=== PATIENT | male | born 1960 | race Caucasian/White ===

== ENCOUNTER 2017-04-04 08:33 | Emergency (ER) | END 2017-04-04 16:25 | disposition home or self-care (01) ==

== ENCOUNTER 2017-04-04 18:56 | Emergency (ER) | END 2017-04-04 21:00 | disposition left against medical advice (07) ==

== ENCOUNTER 2017-09-05 04:20 | Emergency (ER) | END 2017-09-05 05:09 | disposition left against medical advice (07) ==

== ENCOUNTER 2018-04-30 06:02 | Inpatient (IN) | payer OTHER ==
[2018-04-30] VITALS (36 sets, daily range): BP systolic 87–134; BP diastolic 28–110; PULSE 78–91; RESP 0–27; Ht 165.1 cm; Wt 71.5 kg
[~2018-04-30] VITALS: Ht 165.1 cm; Wt 71.5 kg
[~2018-04-30 06:02] MED LIST: ALBU18HF INHALATION; AMLO2.5T78 PO; ASCO250T96 PO; ASPI-817 PO; ATOR-2 PO; BUPR150T6 PO; CARV6.2579 PO; CLOP75TA27 PO; DOCU-159 PO; FER325 PO; FURO40TA4 PO; GABA300C16 PO; HYDR100T25 PO; INSU100C SQ; LANT3I SC; LORA1TAB PO; LOSA50TA14 PO; OMEP20CA16 PO; ZOLP5TAB7 PO
[2018-04-30] MEDS ORDERED: CEFEPIME 2GM/50 ML (PMX) 50 ML IVPB STA (06:13)
[2018-04-30] MEDS ORDERED: SODIUM CHLORIDE 0.9% 1L BAG IV* STA (06:13)
[2018-04-30] MEDS ORDERED: LIDOCAINE 1% (MPF) 5 ML VIAL SC ONE (06:30)
[2018-04-30] MEDS ORDERED: VANCOMYCIN 1 GM (PMX) 250 ML IVPB ONE (06:30)
[2018-04-30] MEDS: DEXTROSE 5%-0.45% NACL 500 ML IV SCH ×2 (06:36→10:30)
[2018-04-30] MEDS: NORepinephrine 8MG/250 ML (PMX 250 ML IV SCH ×2 (07:30→17:16)
[2018-04-30] MEDS ORDERED: NORepinephrine 8MG/250 ML (PMX 250 ML IV SCH (07:30)
[2018-04-30] MEDS: DEXTROSE 10% 250 ML IV SCH ×3 (07:31→11:30)
--- NOTE | 2018-04-30 08:29 | ERD ---
ER Documentation Chief Complaint Chief Complaint PT FOUND ALTERED ON THE FLOOR,HYPOGLYCEMIA BG OF 22 HPI 87-year-old male presents by paramedics from home with an altered mental status. Patient provides very little history on arrival. My history is available for my conversations with the paramedics as well as from the family. As per the family, patient was just recently admitted to the hospital at [facility] where he was being treated for vascular disease as well as gangrene. He apparently left AGAINST MEDICAL ADVICE recently. He was at home and was found with an altered mental status by his family this morning. I have reviewed the distribution superintendent pre-hospital care. Pre-hospital vital signs were reviewed. Pre-hospital diagnostic tests were reviewed. Upon distribution superintendent arrival, he was hypoglycemic and received D10 when his mental status improved. Upon arrival, patient is weak and unable provide any meaningful history. According to the family, he has a known history of gangrene and is scheduled for operative management of the foot in the next few days. No further history is available regarding his diabetes medications ROS All systems reviewed and are negative except as per history of present illness. Medications Home Meds Reported Medications Omeprazole* (Omeprazole*) 20 Mg Capsule., 20 MG PO DAILY, #30 CAP 18 Carvedilol* (Carvedilol*) 6.25 Mg Tablet, 6.25 MG PO BID, #60 TAB 18 Docusate Sodium* (Docusate Sodium*) 100 Mg Capsule, 100 MG PO BID, #60 CAP 18 Ferrous Sulfate* (Ferrous Sulfate*) 325 Mg Tabec, 325 MG PO BID, TAB 18 Zolpidem Tartrate* (Zolpidem Tartrate*) 5 Mg Tablet, 5 MG PO QHS PRN for INSOMNIA, #30 TAB 18 Lorazepam* (Lorazepam*) 1 Mg Tablet, 2 MG PO BID PRN for ANXIETY, #30 TAB 18 Atorvastatin* (Atorvastatin*) 80 Mg Tablet, 80 MG PO QHS, #30 TAB 18 Losartan Potassium* (Losartan Potassium*) 50 Mg Tablet, 50 MG PO DAILY, TAB 18 Hydralazine Hcl* (Hydralazine Hcl*) 100 Mg Tablet, 100 MG PO Q8, #90 TAB 18 Aspirin* (Aspirin* EC) 81 Mg Tablet.dr, 81 MG PO DAILY, TAB 04/04/17 Ascorbic Acid (Vitamin C) 250 Mg Tab, 250 MG PO DAILY, TAB 04/04/17 Insulin Lispro (Humalog) 100 Unit/1 Ml Cartridge, 0-20 UNIT SQ AC MEALS, EA 04/04/17 Clopidogrel Bisulfate (Clopidogrel) 75 Mg Tablet, 75 MG PO DAILY, #30 TAB 04/04/17 Gabapentin* (Gabapentin*) 300 Mg Capsule, 300 MG PO BID, #60 CAP 04/04/17 Bupropion Hcl* (Bupropion XL*) 150 Mg Tab.er.24h, 150 MG PO DAILY, TAB.SA 04/04/17 Furosemide* (Furosemide*) 40 Mg Tablet, 40 MG PO DAILY, TAB 04/04/17 Amlodipine Besylate* (Amlodipine Besylate*) 2.5 Mg Tablet, 2.5 MG PO DAILY, #30 TAB 04/04/17 Insulin Glargine* (Lantus*) 100 Unit/Ml Soln, 28-36 UNIT SC QHS, #1 VIAL 04/04/17 Albuterol Sulfate* (Ventolin HFA*) 18 Gm Hfa.aer.ad, 2 PUFF INHALATION Q6H PRN for WHEEZING AND SOB, #1 INHALER 04/04/17 Allergies Allergies: Coded Allergies: No Known Allergy (Unverified , 04/04/17) PMhx/Soc History of Surgery: Yes (CABG , LT LEG ) Anesthesia Reaction: No Hx Neurological Disorder: No Hx Respiratory Disorders: Yes (PNA, COPD ) Hx Cardiac Disorders: Yes (cabg, cad, htn, NH ) Hx Psychiatric Problems: No Hx Miscellaneous Medical Probl: Yes (DM , ESRD , DIABETIC ULCERS ) Hx Alcohol Use: Yes Hx Substance Use: No Hx Tobacco Use: Yes Smoking Status: Current every day smoker FmHx Noncontributory with supportive family at the bedside Physical Exam Vitals Vital Signs Date Temp Pulse Resp B/P (MAP) Pulse Ox O2 O2 Flow FiO2 Time Delivery Rate 04/30/18 88 18 111/52 98 Nasal 2.0 08:15 (71) Cannula 04/30/18 89 18 86/32 (50) 98 Nasal 2.0 08:00 Cannula 04/30/18 18 94/54 (67) 100 Nasal 2.0 07:50 Cannula 04/30/18 88 18 86/45 (59) 100 Nasal 2.0 07:45 Cannula 04/30/18 89 18 74/42 (53) 98 Nasal 2.0 07:30 Cannula 04/30/18 87 18 74/45 (55) 96 Nasal 2.0 07:15 Cannula 04/30/18 91 18 81/46 (58) 100 Nasal 2.0 06:45 Cannula 04/30/18 92 18 75/35 (48) 100 Nasal 2.0 06:30 Cannula 04/30/18 Nasal 2 06:15 Cannula 04/30/18 100.9 102 21 100/57 98 06:14 (71) Physical Exam GENERAL: Critically ill male. He appears to be lethargic HEENT: Pupils equal, round, and reactive to light. EOMI. There is no scleral icterus. Mucous membranes are pale and dry. No evidence of head trauma NECK: C-spine is soft and supple, there is no meningismus. There is no cervical lymphadenopathy. LUNGS: Crackles bilaterally. No tachypnea or retractions. HEART: Regular rate and rhythm, no murmurs, clicks, rubs or gallops. ABDOMEN: Soft, non-tender, non-distended. There are bowel sounds in all four quadrants. No rebound or guarding. EXTREMITIES: Both upper extremities appear to be normal with only 1+ edema. Patient is status post vascular repair of both lower extremities with an old scar in the right femoral area. Patient has a fresh vascular scar on the left femoral area. This appears to be intact but with minimal inflammatory changes and cellulitis. Patient has recent operative scars on the mid calf area of the left leg which also appears to be secondarily infected. Patient has significant gangrene in the mid foot onward of the left foot. NEURO: The patient moves all four extremities with 5/5 strength. Cranial nerves II - XII are intact. Weak and lethargic. Gag reflex maintained. SKIN: Patient has a dialysis catheter in the right upper chest wall. There are multiple areas of skin infection with what appears to be a diffuse folliculitis. Gangrene on the left foot is noted. HEME/LYMPHATIC: There is no evidence of excessive bruising or lymphedema. PSYCHIATRIC: The patient does not appear anxious or depressed. Patient is lethargic Result Diagram: 3/6/19 0623 3/6/19 0623 Results 24 hrs Laboratory Tests Test 04/30/18 06:09 04/30/18 06:13 04/30/18 06:19 04/30/18 06:23 Bedside Glucose 95 mg/dL Blood Gas Blood arterial Specimen Source Arterial Blood 04/30/2018 7:14:0 Date Drawn 8 AM Arterial Blood 7.436 pH (Temp corrected) Arterial Blood 36.8 mmhg pCO2 (Temp correct) Arterial Blood 67.1 mmHG pO2 (Temp corrected) Arterial Blood 24.2 mmol/L HCO3 Arterial Blood 0.2 mmol/L Base Excess Arterial Blood 92.6 mmHG Oxygen Saturatio n William Test ACCEPTAB Arterial Blood Left Radial Gas Puncture Site Arterial 1.0 % Blood Carboxyhem oglobin Arterial Blood 0.2 % Methemoglobin Blood Gas A-a O2 146.9 mmHg Differential Oxyhemoglobin 91.5 % Percent Blood Gas 37.0 C Temperature Blood Gas NASAL CANNULA Modality FiO2 36.0 % Blood Gas M.D. Notified Whom Blood Gas 04/30/2018 7:31:4 Notified Time 0 AM POC Venous 3.6 mmol/L Lactate White Blood 25.3 10^3/ul Count Red Blood Count 3.31 10^6/ul Hemoglobin 10.9 g/dl Hematocrit 33.5 % Mean Corpuscular 101.2 fl Volume Mean Corpuscular 32.9 pg Hemoglobin Mean Corpuscular 32.5 g/dl Hemoglobin Eda nt Red Cell 15.6 % Distribution Width Platelet Count 211 10^3/UL Mean Platelet 11.4 fl Volume Immature 3.000 % Granulocytes % Neutrophils % 92.0 % Lymphocytes % 1.7 % Monocytes % 2.9 % Eosinophils % 0.0 % Basophils % 0.4 % Nucleated Red 0.8 /100WBC Blood Cells % Immature 0.750 10^3/ul Granulocytes # Neutrophils # 23.3 10^3/ul Lymphocytes # 0.4 10^3/ul Monocytes # 0.7 10^3/ul Eosinophils # 0.0 10^3/ul Basophils # 0.1 10^3/ul Nucleated Red 0.2 10^3/ul Blood Cells # Prothrombin Time 14.4 Sec Prothrombin Time 1.1 Ratio INR 1.11 International Normalized Ratio Activated 34.3 Sec Partial Thrombop last Time Sodium Level 134 mmol/L Potassium Level 3.8 mmol/L Chloride Level 91 mmol/L Carbon Dioxide 25 mmol/L Level Anion Gap 18 Blood Urea 29 mg/dl Nitrogen Creatinine 5.06 mg/dl Est Glomerular 12 mL/min Filtrat Rate mL/min Glucose Level 100 mg/dl Calcium Level 8.5 mg/dl Total Bilirubin 0.1 mg/dl Direct Bilirubin 0.00 mg/dl Indirect 0.1 mg/dl Bilirubin Aspartate Amino 54 IU/L Transf (AST/SGOT ) Alanine 26 IU/L Aminotransferase (ALT/SGPT) Alkaline 1500 IU/L Phosphatase Troponin I 0.103 ng/ml Total Protein 8.0 g/dl Albumin 3.4 g/dl Globulin 4.60 g/dl Albumin/Globulin 0.73 Ratio Test 04/30/18 06:29 04/30/18 06:42 04/30/18 07:23 04/30/18 08:15 Urine Color ERIC Urine Clarity CLOUDY Urine pH 5.0 Urine Specific 1.024 [place] Urine Ketones TRACE mg/dL Urine Nitrite NEGATIVE mg/dL Urine Bilirubin NEGATIVE mg/dL Urine NEGATIVE mg/dL Urobilinogen Urine Leukocyte TRACE Shaneka/ul Esterase Urine 60 /HPF Microscopic RBC Urine 16 /HPF Microscopic WBC Urine Bacteria FEW /HPF Urine Hemoglobin 2+ mg/dL Urine Glucose 1+ mg/dL Urine Total 1+ mg/dl Protein Bedside Glucose 73 mg/dL 70 mg/dL POC Venous 2.4 mmol/L Lactate Current Medications Medications Dose Sig/Tori Start Time Status Last (Trade) Ordered Route PRN Stop Time Admin Dose Reason Admin Sodium 2,400 ml BOLUS OVER 2 04/30/18 DC 04/30/18 Chloride HOURS STAT 06:13 04/30/18 06:36 (NS) IV* 06:16 Cefepime HCl 50 ml @ ONCE STAT 04/30/18 DC 04/30/18 100 mls/hr IVPB 06:13 04/30/18 06:36 06:42 Vancomycin 250 ml @ ONCE ONCE 04/30/18 04/30/18 HCl 125 mls/hr IVPB 06:30 04/30/18 07:08 08:29 500 ml @ Q4H IV 04/30/18 04/30/18 Dextrose/Sodi 125 mls/hr 06:30 06:36 um Chloride Lidocaine 5 ml ONCE ONCE 04/30/18 DC (Xylocaine SC 06:30 04/30/18 1% (Mpf)) 06:31 250 ml @ TITRATE IV 04/30/18 DC Norepinephrin 1.875 mls/ 07:30 04/30/18 e hr 07:30 Dextrose 250 ml @ Q2H IV 04/30/18 04/30/18 125 mls/hr 07:30 07:31 250 ml @ TITRATE IV 04/30/18 04/30/18 Norepinephrin 1.875 mls/ 07:30 07:30 e hr Procedures/MDM Patient was taken to a room, seen and evaluated. Comfort measures were initiated. Diagnostic tests were ordered and reviewed. 3 LEAD RHYTHM STRIP: Normal sinus rhythm without ectopy EK lead EKG reviewed by myself: Normal Sinus Rhythm Normal [place] and intervals ST depressions in the lateral leads. T wave inversions in the 1 and aVL. Impression: Normal EKG with possible ischemic changes RADIOLOGY: Reviewed with the radiologist CONSULTATION: Hospitalist was notified for admission. Podiatry consultation was obtained REEVALUATION: Blood pressure was noted to go low. A central line was then started. He was started on levo fed for IV pressors and his blood pressure responded. IV fluids were continued and monitored closely given his history of pulmonary edema and renal failure and findings on his chest x-ray of pulmonary edema. Antibiotics were initiated. Central Line Placement by me: Under sterile Seldinger technique, a triple-lumen catheter was placed in the left subclavian area. Patient had no obvious complications noted. Post placement chest x-ray was reviewed by myself With the pressors and the above interventions, blood pressure started to stabilize and he looks much better. However, blood sugar remained low. He was escalated from D5-D10 and this then stabilized his blood sugar Arrangements were made for admission to the intensive care unit MEDICAL DECISION MAKIN-year-old male presents the emergency department with an altered mental status which appears to be multifactorial. He is hypoglycemic and is required ongoing IV infusion of D5 and then D10. He is in septic shock with what appears to be gangrene as a source of infection. I have started him on broad-spectrum antibiotics as well as supportive management with IV vasopressors. However, he will likely require surgical repair of his gangrene f or source control. Patient remains critically ill and will continue to receive significant supportive care. Sepsis Documentation: Patient's infectious symptoms have not stabilized and the patient is at risk of rapid decompensation. The patient will be admitted for careful hydration, antibiotic therapy, and infectious source control. SEVERE SEPSIS CRITERIA: Infectious source: Gangrene End organ damage indicated by: Lactate > 2.0 mmol/L Hypotension (SBP < 90 or >40 mmHG drop or MAP < 65) Acute Resp Failure (sat < 92% w/o oxygen) [employer] Presser > 2.0 SEPSIS MANAGEMENT Time of recognition of sepsis: Upon arrival. Time of recognition of severe sepsis: Upon arrival. Time of recognition of septic shock: Upon arrival. 3 HOUR BUNDLE Blood cultures x 2 before broad-spectrum antibiotics: Yes 30 ml/kg NS bolus ongoing Initial lactate reviewed Repeat lactate pending SEPTIC SHOCK ASSESSMENT: No lactic acid > 4.0 yes- Persistent hypotension (SBP < 90 or 40 mmHg drop, MAP < 65) despite 30 mL/kg IV fluid bolus VOLUME REASSESSMENT FOR SEPTIC SHOCK: Reevaluation Time: 0830 Signs noted per nursing note Heart regular rate & rhythm Lungs no crackles Skin warm & dry Cap Refill less than 2 seconds Peripheral pulses radially present PERSISTENT HYPOTENSION TREATMENT: Comfort care no Central line: left subclavian line Vasopressor started: levophed CRITICAL CARE Critical care time 95 minutes Emergent fluid management while maintaining close respiratory support. Provision of immediate and broad-spectrum antibiotic therapy. Simultaneous assessment for possible sources in order to direct targeted therapy. Consideration for invasive and chemical support to prevent cardiopulmonary collapse. Critical care time is independent of procedures performed. Departure Diagnosis: Primary Impression: Septic shock Additional Impressions: Hypoglycemia Renal failure Pulmonary edema Peripheral vascular disease Gangrene Condition: Critical JULIO,JASON Apr 30, 2018 08:29
[2018-04-30] MEDS ORDERED: CALC667C PO (09:44)
[2018-04-30] MEDS ORDERED: TAMS0.4C2 PO (09:44)
[2018-04-30] MEDS ORDERED: HYDR-4011 PO (09:44)
[2018-04-30] MEDS ORDERED: BUSP15TA3 ORAL (09:44)
[2018-04-30] MEDS ORDERED: AMOX1TAB10 PO (09:44)
[2018-04-30] MEDS ORDERED: MIRT15TA5 PO (09:44)
[2018-04-30] MEDS ORDERED: DICL100G37 TOP (09:46)
[2018-04-30] MEDS ORDERED: HYDR-843 PO (09:46)
[2018-04-30] MEDS ORDERED: POLY8.5P PO (09:46)
--- NOTE | 2018-04-30 10:37 | CONS ---
Assessment/Plan Assessment/Plan Assessment/Plan (Daily) Left foot cellulitis Left foot dry gangrene Sepsis PAD ESRD on HD CAD hx of CABG COPD Plan: Patient planned for admission into ICU and to receive IV abx as recommended. N otified Dr. Gonzalez who will evaluate the patient from vascular standpoint. Will need operative reports from [place] regarding left lower extremity bypass procedure. Ordered non invasive studies and bypass graft evaluation. X-rays ordered of left lower extremity. Betadine pain to gangrenous areas with dry sterile dressings. Non weight bearing to left lower extremity. Consultation Date/Type/Reason Admit Date/Time Date/Time of Note DATE: 04/30/18 TIME: 10:37 Hx of Present Illness 57 y/o diabetic M patient with multiple comorbidities presents to the ED with sepsis and gangrene to his left lower extremity. Patient is accompanied by his sister and nieces. Per family he had altered mental status and reported fevers within the last week. Patient had a previous left lower extremity bypass procedure on 04/22/18 at [facility]. Patient was also being monitored by outside radiologic tech and was being planned for TMA of the left foot. Family members also noted concerns for his fingers and hand with gangrenous changes as well. Patient is also receiving dialysis three times a week. ROS Negative except for HPI Past Medical History CAD, HTN, PAD, COPD, PNA, OR, DM, ESRD Home Meds Reported Medications Hydroxyzine Hcl* (Hydroxyzine Hcl*) 25 Mg Tablet, 25 MG PO Q8H PRN for ITCHING, #30 TAB 04/30/18 Polyethylene Glycol 3350 (GAVILAX) 8.5 Gm Powd.pack, 8.5 GM PO DAILY 04/30/18 Diclofenac Sodium* (Voltaren* Gel) 1% -100 Gm Gel, 2 GM TOP QID, #1 TUB 04/30/18 Hydrocodone/Acetaminophen ([place] 5-325 Tablet) 1 Each Tablet, 1 TAB PO Q6H PRN for PAIN LEVEL 6-10, TAB 04/30/18 Amoxicillin/Potassium Clav (Amox-Clav 875-125 mg Tablet) 875-125 mg Tab, 1 TAB PO BID, #20 TAB 04/30/18 Calcium Acetate* (Calcium Acetate*) 667 Mg Capsule, 667 MG PO WITH MEALS, #30 CAP 04/30/18 Tamsulosin Hcl* (Tamsulosin Hcl*) 0.4 Mg Cap.er.24h, 0.4 MG PO HS, CAP 04/30/18 Buspirone Hcl* (Buspirone Hcl*) 15 Mg Tablet, 1 TAB ORAL DAILY 04/30/18 Mirtazapine* (Mirtazapine*) 15 Mg Tablet, 15 MG PO HS, TAB 04/30/18 Omeprazole* (Omeprazole*) 20 Mg Capsule.dr, 20 MG PO DAILY, #30 CAP 04/04/17 Carvedilol* (Carvedilol*) 6.25 Mg Tablet, 6.25 MG PO BID, #60 TAB 04/04/17 Docusate Sodium* (Docusate Sodium*) 100 Mg Capsule, 100 MG PO BID, #60 CAP 04/04/17 Ferrous Sulfate* (Ferrous Sulfate*) 325 Mg Tabec, 325 MG PO BID, TAB 04/04/17 Zolpidem Tartrate* (Zolpidem Tartrate*) 5 Mg Tablet, 5 MG PO QHS PRN for INSOM BASHIR, #30 TAB 04/04/17 Lorazepam* (Lorazepam*) 1 Mg Tablet, 2 MG PO BID PRN for ANXIETY, #30 TAB 04/04/17 Atorvastatin* (Atorvastatin*) 80 Mg Tablet, 80 MG PO QHS, #30 TAB 04/04/17 Losartan Potassium* (Losartan Potassium*) 50 Mg Tablet, 50 MG PO DAILY, TAB 04/04/17 Hydralazine Hcl* (Hydralazine Hcl*) 100 Mg Tablet, 100 MG PO Q8, #90 TAB 04/04/17 Aspirin* (Aspirin* EC) 81 Mg Tablet.dr, 81 MG PO DAILY, TAB 04/04/17 Ascorbic Acid (Vitamin C) 250 Mg Tab, 250 MG PO DAILY, TAB 04/04/17 Clopidogrel Bisulfate (Clopidogrel) 75 Mg Tablet, 75 MG PO DAILY, #30 TAB 04/04/17 Gabapentin* (Gabapentin*) 300 Mg Capsule, 300 MG PO BID, #60 CAP 04/04/17 Furosemide* (Furosemide*) 40 Mg Tablet, 40 MG PO DAILY, TAB 04/04/17 Amlodipine Besylate* (Amlodipine Besylate*) 2.5 Mg Tablet, 2.5 MG PO DAILY, #30 TAB 04/04/17 Insulin Glargine* (Lantus*) 100 Unit/Ml Soln, 28-36 UNIT SC QHS, #1 VIAL 04/04/17 Albuterol Sulfate* (Ventolin HFA*) 18 Gm Hfa.aer.ad, 2 PUFF INHALATION Q6H PRN for WHEEZING AND SOB, #1 INHALER 04/04/17 Discontinued Reported Medications Insulin Lispro (Humalog) 100 Unit/1 Ml Cartridge, 0-20 UNIT SQ AC MEALS, EA 04/04/17 Bupropion Hcl* (Bupropion XL*) 150 Mg Tab.er.24h, 150 MG PO DAILY, TAB.SA 04/04/17 Medications Current Medications Dextrose/Sodium Chloride 500 ml @ 125 mls/hr Q4H IV Last administered on 04/30/18at 06:36; Admin Dose 125 MLS/HR; Start 04/30/18 at 06:30 Dextrose 250 ml @ 125 mls/hr Q2H IV Last administered on 04/30/18at 07:31; Admin Dose 125 MLS/HR; Start 04/30/18 at 07:30 Norepinephrine 250 ml @ 1.875 mls/ hr TITRATE IV Last administered on 04/30/18at 07:30; Admin Dose 3.75 MLS/HR; Start 04/30/18 at 07:30 Allergies: Coded Allergies: No Known Allergy (Unverified , 04/30/18) Past Surgical History CABG, left lower extremity bypass 04/22/18, Permacath placement Past Surgical Hx: coronary bypass surgery, other Family History Significant Family History: no pertinent family hx Social History Alcohol Use: occasionally Smoking Status: Current every day smoker Exam/Review of Systems Exam Vitals Vital Signs Date Temp Pulse Resp B/P (MAP) Pulse Ox O2 O2 Flow FiO2 Time Delivery Rate 04/30/18 87 18 99/78 (85) 99 Nasal 2.0 10:30 Cannula 04/30/18 99.6 10:00 Intake and Output 04/29/18 04/29/18 04/30/18 1414:59 22:59 06:59 IntakeIntake Total 35 ml BalanceBalance 35 ml Exam Unable to palpate DP, weakly palpable PT artery Weakly palpable pulse to graft site Skin temperature gradient warm to warm from proximal leg to distal feet Dry gangrene appreciated to the left hallux and 2nd digit with surrounding ischemic changes. Ascending erythema appreciated. No purulence. Absent protective sensations Muscle strength 4/5 in all compartments of the foot Left lower extremity bypass incision sites well approximated and no signs of wound dehiscence, no erythema, or fluctuance appreciated. Results Result Diagram: 04/30/18 0623 04/30/18 0623 Results 24hrs Laboratory Tests Test 04/30/18 06:09 04/30/18 06:13 04/30/18 06:19 04/30/18 06:23 Bedside Glucose 95 Blood Gas Specimen Blood arterial Source Arterial Blood 04/30/2018 7:14:08 Date Drawn AM Arterial Blood pH 7.436 (Temp corrected) Arterial Blood 36.8 pCO2 (Temp correct) Arterial Blood pO2 67.1 L (Temp corrected) Arterial Blood 24.2 HCO3 Arterial Blood 0.2 Base Excess Arterial Blood 92.6 L Oxygen Saturation William Test ACCEPTAB Arterial Blood Gas Left Radial Puncture Site Arterial 1.0 Blood Carboxyhemog lobin Arterial Blood 0.2 Methemoglobin Blood Gas A-a O2 146.9 H Differential Oxyhemoglobin 91.5 L Percent Blood Gas 37.0 Temperature Blood Gas Modality NASAL CANNULA FiO2 36.0 Blood Gas Notified MDaquan Whom Blood Gas Notified 04/30/2018 7:31:40 Time AM POC Venous Lactate 3.6 *H White Blood Count 25.3 #H Red Blood Count 3.31 L Hemoglobin 10.9 L Hematocrit 33.5 L Mean Corpuscular 101.2 #H Volume Mean Corpuscular 32.9 Hemoglobin Mean Corpuscular 32.5 Hemoglobin Concent Red Cell 15.6 H Distribution Width Platelet Count 211 Mean Platelet 11.4 H Volume Immature 3.000 H Granulocytes % Neutrophils % 92.0 H Lymphocytes % 1.7 L Monocytes % 2.9 Eosinophils % 0.0 Basophils % 0.4 Nucleated Red 0.8 H Blood Cells % Immature 0.750 H Granulocytes # Neutrophils # 23.3 H Lymphocytes # 0.4 L Monocytes # 0.7 Eosinophils # 0.0 Basophils # 0.1 Nucleated Red 0.2 H Blood Cells # Prothrombin Time 14.4 # Prothrombin Time 1.1 Ratio INR International 1.11 Normalized Ratio Activated 34.[address] Time Sodium Level 134 L Potassium Level 3.8 Chloride Level 91 L Carbon Dioxide 25 Level Anion Gap 18 H Blood Urea 29 H Nitrogen Creatinine 5.06 H Est Glomerular 12 L Filtrat Rate mL/min Glucose Level 100 Calcium Level 8.5 Total Bilirubin 0.1 L Direct Bilirubin 0.00 Indirect Bilirubin 0.1 Aspartate Amino 54 H Transf (AST/SGOT) Alanine 26 Aminotransferase ( ALT/SGPT) Alkaline 1500 H Phosphatase Troponin I 0.103 Total Protein 8.0 Albumin 3.4 Globulin 4.60 H Albumin/Globulin 0.73 Ratio Test 04/30/18 06:29 04/30/18 06:42 04/30/18 07:23 04/30/18 08:12 Urine Color ERIC Urine Clarity CLOUDY A Urine pH 5.0 Urine Specific 1.024 [place] Urine Ketones TRACE A Urine Nitrite NEGATIVE Urine Bilirubin NEGATIVE Urine Urobilinogen NEGATIVE Urine Leukocyte TRACE A Esterase Urine Microscopic 60 H RBC Urine Microscopic 16 H WBC Urine Bacteria FEW A Urine Hemoglobin 2+ H Urine Glucose 1+ H Urine Total 1+ H Protein Bedside Glucose 73 70 120 Test 04/30/18 08:15 04/30/18 09:37 POC Venous Lactate 2.4 *H Bedside Glucose 185 Medications Medication Current Medications Dextrose/Sodium Chloride 500 ml @ 125 mls/hr Q4H IV Last administered on 04/30/18at 06:36; Admin Dose 125 MLS/HR; Start 04/30/18 at 06:30 Dextrose 250 ml @ 125 mls/hr Q2H IV Last administered on 04/30/18at 07:31; Admin Dose 125 MLS/HR; Start 04/30/18 at 07:30 Norepinephrine 250 ml @ 1.875 mls/ hr TITRATE IV Last administered on 04/30/18 07:30; Admin Dose 3.75 MLS/HR; Start 04/30/18 at 07:30 SARKIS RUSSELL DPM Apr 30, 2018 10:37
[2018-04-30] MEDS ORDERED: ACETAMINOPHEN 650MG/20.3ML CUP PO PRN (12:30)
[2018-04-30] MEDS ORDERED: ZOLPIDEM 5 MG TAB PO PRN (12:30)
[2018-04-30] MEDS ORDERED: DOCUSATE SODIUM 100 MG CAP PO PRN (12:30)
[2018-04-30] MEDS ORDERED: PIPE2.257 IV (12:53)
[2018-04-30] MEDS ORDERED: GLUCOSE GEL 15 GRAM TUBE BUCCAL PRN (13:00)
[2018-04-30] MEDS ORDERED: GLUCOSE GEL 15 GRAM TUBE PO PRN ×2 (13:00)
[2018-04-30] MEDS ORDERED: DEXTROSE 50% 50 ML SYRINGE IV PRN ×2 (13:00)
[2018-04-30] MEDS ORDERED: GLUCAGON 1 MG INJ IM PRN (13:00)
[2018-04-30] MEDS: ASPIRIN (EC) 81 MG TAB PO SCH (13:20)
[2018-04-30] MEDS: DOCUSATE SODIUM 100 MG CAP PO SCH ×2 (13:20→21:00)
--- NOTE | 2018-04-30 15:10 | HP ---
DATE OF ADMISSION: 04/30/2018 CHIEF COMPLAINT: Altered mental status. HISTORY OF PRESENT ILLNESS: A 57-year-old male with hypertension, poorly controlled diabetes mellitu s, severe diabetic vasculopathy, end-stage renal disease and gangrenous left foot, presented to [facility] room with altered mental status. Paramedics initially found blood sugar to be 22. The patient received D10 and his mental status improved. REVIEW OF SYSTEMS: He denies chest pain. No shortness of breath. No cough. No abdominal pain, [place] or vomiting. No genitourinary symptoms. Initial evaluation revealed evidence of left lower extremity cellulitis and septic shock. White bloo d cell count was 25.3. Initial lactate was 2.4. Repeat lactate was 2.1. The patient was evaluated by podiatry. He was started on a Levophed drip. The patient undergoes hemodialysis every Saturday, and Saturday. He did not have dialysis on the day of admission. PAST MEDICAL HISTORY: 1. Type 2 diabetes mellitus. 2. Hypertension. 3. Severe diabetic vasculopathy. 4. Severe diabetic nephropathy. 5. End-stage renal disease, on hemodialysis. 6. Coronary artery disease. 7. Hyperlipidemia. 8. Chronic depression. PAST SURGICAL HISTORY: 1. Status post coronary artery bypass graft. 2. Status post left lower extremity vascular bypass on 04/22/2018. MEDICATIONS PRIOR TO ADMISSION: 1. Albuterol. 2. Flomax. 3. Plavix. 4. Iron sulfate. 5. Norvasc. 6. Lipitor. 7. Coreg. 8. Hydralazine. 9. Losartan. 10. Aspirin. 11. Buspirone. 12. Diclofenac sodium. 13. Gabapentin. 14. [place]. 15. Hydroxyzine. 16. Lorazepam. 17. Mirtazapine. PHYSICAL EXAMINATION: GENERAL: Well-developed, well-nourished male who is in no apparent distress. He is alert and orient ed to time, place. HEENT: Extraocular muscles are intact. Pupils are equal and reactive to light bilaterally. Sclerae are anicteric. Oropharynx is clear and moist. NECK: Supple. No JVD, no carotid bruits. LUNGS: Clear to auscultation bilaterally. CARDIAC: Regular rate and rhythm. No murmurs, rubs or gallops. ABDOMEN: Soft, nontender, nondistended, normoactive bowel sounds. EXTREMITIES: Left lower extremity with dry gangrene involving the first 2 digits. Diffuse erythema and edema noted involving the entire foot and ankle area. [place] were noted in left distal lower ex tremity. LABORATORY DATA: White blood cell count 25.3, hemoglobin 10.9, platelet count is 211,000. Basic met abolic panel shows BUN of 29, creatinine of 5.06, potassium was 3.8. ASSESSMENT: 1. A 57-year-old male with septic shock. 2. Left lower extremity cellulitis. 3. Left lower extremity dry gangrene. 4. End-stage renal disease, on hemodialysis every Saturday, Saturday, Saturday. 5. Type 2 diabetes mellitus. 6. Hypoglycemic reaction. 7. History of hypertension. 8. Hyperlipidemia. 9. Severe peripheral vascular disease, status post left lower extremity vascular bypass. PLAN: 1. Admit to ICU. Continue IV vancomycin and Zosyn. 2. Continue IV Levophed drip. 3. Monitor labs. 4. Check culture results. 5. Podiatry followup. 6. Nephrology consultation was requested. Dictated By: SACHI GOODSON/NTS Conf#: [id number] DID#: [id number] CC: GREG MANNING MD;*EndCC*
--- NOTE | 2018-04-30 15:24 | CONS ---
DATE OF ADMISSION: 04/30/2018 DATE OF CONSULTATION: 04/30/2018 TYPE OF CONSULTATION: Infectious disease. REASON FOR CONSULTATION: Antibiotic management. HISTORY OF PRESENT ILLNESS: Lydia Courtney is a 57-year-old male who was found altered on the bed w ith hypoglycemia of 22 mg percent. The patient is a 57-year-old male who comes in with altered menta l status. He was admitted recently to [facility] where he was being treated for vasc ular disease as well as foot gangrene. He left against medical advice and he was found at home alter ed. The patient was significantly hypoglycemic as noted. He is scheduled for operative management o f the foot over the next few days. He is diabetic. His medications showed that he is also hyperlipi demic and has diabetic neuropathy. He is status post surgery, status post coronary artery bypass gra fting and left leg surgery. PAST MEDICAL HISTORY: Significant for end-stage renal disease, diabetes, diabetic ulcers, pneumonia, COPD, has history of coronary artery disease, hypertension and DE. FAMILY HISTORY: Noncontributory. SOCIAL HISTORY: He drinks alcohol and uses tobacco on a daily basis. He denies substance abuse. On admission, his white count was 25.3, H and H of 10.9 and 33.5, platelet count 211,000. BUN and cr eatinine is 29/5.06, glucose of 100. His temperature in the ER was 100.9. The patient was seen in c onsultation by Dr. Chamberlain, podiatry and partner, Dr. Campos. The patient had left foot celluliti s, left foot dry gangrene, sepsis, peripheral artery disease, end-stage renal disease on hemodialysis , coronary artery disease with a history of CABG and COPD. He is planned for admission into the ICU to receive IV antibiotics. Dr. House will evaluate the patient from vascular standpoint. We will ne ed operative report from [place] regarding left lower extremity bypass procedure. I ordered noninvas caleb studies and bypass graft evaluation, x-ray orders of the left lower extremity. Betadine was plac ed on gangrenous area with dry sterile dressings, nonweightbearing to left lower extremity. He had l eft lower extremity bypass on 04/12/2018. There was a plan for transmetatarsal amputation of the lef t foot. Family members noted concern for his fingers and hands with gangrenous changes as well. The patient is receiving dialysis 3 times a week. PHYSICAL EXAMINATION: GENERAL: The patient is very weak. HEENT: Within normal limits. NECK: Supple. LYMPH NODES: None palpable. CHEST: Decreased breath sounds at the bases. HEART: Without murmur or gallop. ABDOMEN: Soft, nontender without organosplenomegaly or masses. EXTREMITIES: Both upper extremities are normal with 1+ edema. The patient is status post vascular r epair both lower extremities with an old scar in the right femoral area. There is a fresh vascular s car in the left femoral area which is now covered. There was minimal inflammatory changes and cellul itis according to the ER. Recent operative scars in the mid calf of the left leg which also appear t o be secondarily infected. He has significant gangrene of the mid foot onward of the left foot. RECTAL AND GENITAL: Deferred. NEUROLOGICAL: He is lethargic. Decreased sensation in distal extremities. SKIN: The patient has dialysis catheter in the right upper chest with multiple areas of skin infecti ons and cellulitis. Gangrene of the left foot is noted. HOSPITAL COURSE: His white count as noted was 25.3 with 92% neutrophils. The patient was started on vancomycin and cefepime. A central line was placed by the ER. Triple lumen was placed in the left subclavian vein. The patient was placed on pressors and was also given D5 and D10 to stabilize his b lood pressure. The patient is in septic shock. He is hypoglycemic. He has gangrenous changes. He will likely require surgical intervention. His lactate was greater than 2, end-organ damage indicate d, hypotension, acute respiratory failure. Blood cultures were ordered. The patient is on appropria te antibiotic therapy, on pressors, has a central line. I concur with the management and with the an tibiotics at present. Blood cultures, urine cultures and MRSA screen were ordered. I will dictate m y findings to Dr. Campos, Dr. Chamberlain and to the hospitalist. Dictated By: KRZYSZTOF BUI MD, JD/RABIA Conf#: [id number] DID#: [id number] CC: GREG MANNING MD;*EndCC*
[2018-04-30] MEDS: HYDROmorphONE 0.5 MG/0.5 ML SYG IV PRN ×2 (15:35→20:10)
--- NOTE | 2018-04-30 15:47 | QN ---
Documentation Comment Patient well known to my partner Dr. Roy. Admitted from ER with sepsis s/p L fem-pop bypass a week ago by Dr. Roy at [place] for gangrene of the foot.The surgical incisions look fine. The left foot is warm and the areas of gangrene are well demarcated. There is some odor and necrosis on the plantar forefoot. DP signal is dopplerable - this is unchanged from post bypass surgery. WBC 25k. - Dr. Red has seen him and started IV antibiotics - Dr. Hooks to see regarding HD - OK for L foot TMA /debridement from vascular standpoint, d/w Dr. Chamberlain - d/w Dr. Roy - he will be back tomorrow if there are further issues HARSHA ROLON MD Apr 30, 2018 15:47
--- NOTE | 2018-04-30 16:56 | CONS ---
Assessment/Plan Assessment/Plan Assessment/Plan (Daily) 1. acute fluid [place], pulmonary edema - missed HD today 2. Septic shock on Levophed 3. ESRD on HD MWF schedule at [facility] [place] [facility] 4. H./o hypertension 5. H/o DM II 6. H/o HL 7. Left foot dry gangrene, Left foot cellulitis 8. H/o CAD s/p CABG 9. H/O PAD 10. H/o COPD Plan: Pt is seen inED, going to ICU, levophed for BP support D/c IVF, since pt has lung congestion, will avoid IVF hydration plan is to do HD first in AM IV abx as per ID , renally dose all abx and monitor electrolytes, ID Dr. Red following s/p Podiatry by Dr. Chamberlain Thanks for consultation will follow up Consultation Date/Type/Reason Admit Date/Time 04/30/18 Date of Consultation: Apr 30, 2018 Type of Consult NEPHROLOGY Reason for Consultation ESRD on HD with septic shock Requesting Provider: SACHI ISLAS MD Date/Time of Note DATE: 04/30/18 TIME: 16:56 Hx of Present Illness 57-year-old male with hypertension, poorly controlled diabetes mellitus, severe diabetic vasculopathy, end-stage renal disease and gangrenous left foot, presented to emergency room with altered mental status. Paramedics initially found blood sugar to be 22. The patient received D10 and his mental status improved. He was noted to have sepsis with LE gangrene, Lactic acidosis, Admitted to ICU, pt has been received iVF hydration in ED pt is my dialysis pt and Renal has been consulted for [facility] HD Constitutional: disoriented, poor po ENT: no complaints Respiratory: cough, pleuritic pain, shortness of breath Cardiovascular: no complaints Gastrointestinal: no complaints Genitourinary: no complaints Musculoskeletal: no complaints Skin: no complaints Neurologic: no complaints Past Medical History Home Meds Reported Medications Hydroxyzine Hcl* (Hydroxyzine Hcl*) 25 Mg Tablet, 25 MG PO Q8H PRN for ITCHING, #30 TAB 04/30/18 Polyethylene Glycol 3350 (GAVILAX) 8.5 Gm Powd.pack, 8.5 GM PO DAILY 04/30/18 Diclofenac Sodium* (Voltaren* Gel) 1% -100 Gm Gel, 2 GM TOP QID, #1 TUB 04/30/18 Hydrocodone/Acetaminophen (Sultan 5-325 Tablet) 1 Each Tablet, 1 TAB PO Q6H PRN for PAIN LEVEL 6-10, TAB 04/30/18 Calcium Acetate* (Calcium Acetate*) 667 Mg Capsule, 667 MG PO WITH MEALS, #30 CAP 04/30/18 Tamsulosin Hcl* (Tamsulosin Hcl*) 0.4 Mg Cap.er.24h, 0.4 MG PO HS, CAP 04/30/18 Buspirone Hcl* (Buspirone Hcl*) 15 Mg Tablet, 1 TAB ORAL DAILY 04/30/18 Mirtazapine* (Mirtazapine*) 15 Mg Tablet, 15 MG PO HS, TAB 04/30/18 Omeprazole* (Omeprazole*) 20 Mg Capsule.dr, 20 MG PO DAILY, #30 CAP 04/04/17 Carvedilol* (Carvedilol*) 6.25 Mg Tablet, 6.25 MG PO BID, #60 TAB 04/04/17 Docusate Sodium* (Docusate Sodium*) 100 Mg Capsule, 100 MG PO BID, #60 CAP 04/04/17 Ferrous Sulfate* (Ferrous Sulfate*) 325 Mg Tabec, 325 MG PO BID, TAB 04/04/17 Zolpidem Tartrate* (Zolpidem Tartrate*) 5 Mg Tablet, 5 MG PO QHS PRN for INSOMNIA, #30 TAB 04/04/17 Lorazepam* (Lorazepam*) 1 Mg Tablet, 2 MG PO BID PRN for ANXIETY, #30 TAB 04/04/17 Atorvastatin* (Atorvastatin*) 80 Mg Tablet, 80 MG PO QHS, #30 TAB 04/04/17 Losartan Potassium* (Losartan Potassium*) 50 Mg Tablet, 50 MG PO DAILY, TAB 04/04/17 Hydralazine Hcl* (Hydralazine Hcl*) 100 Mg Tablet, 100 MG PO Q8, #90 TAB 04/04/17 Aspirin* (Aspirin* EC) 81 Mg Tablet.dr, 81 MG PO DAILY, TAB 04/04/17 Ascorbic Acid (Vitamin C) 250 Mg Tab, 250 MG PO DAILY, TAB 04/04/17 Clopidogrel Bisulfate (Clopidogrel) 75 Mg Tablet, 75 MG PO DAILY, #30 TAB 04/04/17 Gabapentin* (Gabapentin*) 300 Mg Capsule, 300 MG PO BID, #60 CAP 04/04/17 Furosemide* (Furosemide*) 40 Mg Tablet, 40 MG PO DAILY, TAB 04/04/17 Amlodipine Besylate* (Amlodipine Besylate*) 2.5 Mg Tablet, 2.5 MG PO DAILY, #30 TAB 04/04/17 Insulin Glargine* (Lantus*) 100 Unit/Ml Soln, 28-36 UNIT SC QHS, #1 VIAL 04/04/17 Albuterol Sulfate* (Ventolin HFA*) 18 Gm Hfa.aer.ad, 2 PUFF INHALATION Q6H PRN for WHEEZING AND SOB, #1 INHALER 04/04/17 Discontinued Reported Medications Amoxicillin/Potassium Clav (Amox-Clav 875-125 mg Tablet) 875-125 mg Tab, 1 TAB PO BID, #20 TAB 04/30/18 Insulin Lispro (Humalog) 100 Unit/1 Ml Cartridge, 0-20 UNIT SQ AC MEALS, EA 04/04/17 Bupropion Hcl* (Bupropion XL*) 150 Mg Tab.er.24h, 150 MG PO DAILY, TAB.SA 04/04/17 Medications Current Medications Dextrose/Sodium Chloride 500 ml @ 125 mls/hr Q4H IV Last administered on 04/30/18at 06:36; Admin Dose 125 MLS/HR; Start 04/30/18 at 06:30 Dextrose 250 ml @ 125 mls/hr Q2H IV Last administered on 04/30/18at 09:30; Admin Dose 125 MLS/HR; Start 04/30/18 at 07:30 Norepinephrine 250 ml @ 1.875 mls/ hr TITRATE IV Last administered on 04/30/18at 07:30; Admin Dose 3.75 MLS/HR; Start 04/30/18 at 07:30 Acetaminophen (Tylenol Liquid) 650 mg Q6H PRN PO PAIN LEVEL 1-3 OR FEVER; Start 04/30/18 at 12:30 Hydromorphone HCl (Dilaudid) 0.5 mg Q4H PRN IV PAIN LEVEL 7-10; Start 04/30/18 at 12:30 Zolpidem Tartrate (Ambien) 5 mg QHS PRN PO INSOMNIA; Start 04/30/18 at 12:30 Docusate Sodium (Colace) 100 mg Q12H PRN PO CONSTIPATION; Start 04/30/18 at 12:30 Aspirin (Halfprin) 81 mg DAILY PO Last administered on 04/30/18at 13:20; Admin Dose 81 MG; Start 04/30/18 at 13:00 Atorvastatin Calcium (Lipitor) 80 mg QHS PO ; Start 04/30/18 at 21:00 Calcium Acetate (Phoslo) 667 mg WITH MEALS PO ; Start 04/30/18 at 17:35 Docusate Sodium (Colace) 100 mg BID PO Last administered on 04/30/18at 13:20; Admin Dose 100 MG; Start 04/30/18 at 13:00 Ferrous Sulfate (Ferrous Sulfate (Ec)) 325 mg BID PO ; Start 05/01/18 at 09:00 Acetaminophen/ Hydrocodone Bitart ([place]ultan (5/325)) 1 tab Q6H PRN PO PAIN LEVEL 6-10; Start 04/30/18 at 13:00 Insulin Glargine (Lantus) 25 units QHS SC ; Start 04/30/18 at 21:00 Mirtazapine (Remeron) 15 mg HS PO ; Start 04/30/18 at 21:00 Tamsulosin HCl (Flomax) 0.4 mg HS PO ; Start 04/30/18 at 21:00 Miscellaneous Information 1 ea NOTE XX ; Start 04/30/18 at 13:00 Glucose (Glutose) 15 gm Q15M PRN PO DECREASED GLUCOSE; Start 04/30/18 at 13:00 Glucose (Glutose) 22.5 gm Q15M PRN PO DECREASED GLUCOSE; Start 04/30/18 at 13:00 Dextrose (D50w Syringe) 25 ml Q15M PRN IV DECREASED GLUCOSE; Start 04/30/18 at 13:00 Dextrose (D50w Syringe) 50 ml Q15M PRN IV DECREASED GLUCOSE; Start 04/30/18 at 13:00 Glucagon (Glucagen) 1 mg Q15M PRN IM DECREASED GLUCOSE; Start 04/30/18 at 13:00 Glucose (Glutose) 15 gm Q15M PRN BUCCAL DECREASED GLUCOSE; Start 04/30/18 at 13:00 Insulin Aspart (Novolog Insulin Pen) NOVOLOG *MODERATE* ALGORITHM WITH MEALS BEDTIME SC ; Start 04/30/18 at 17:35 Allergies: Coded Allergies: No Known Allergy (Unverified , 04/30/18) Past Surgical History Past Surgical Hx: coronary bypass surgery, other Social History Alcohol Use: occasionally Smoking Status: Current every day smoker Exam/Review of Systems Exam Vitals Vital Signs Date Temp Pulse Resp B/P (MAP) Pulse Ox O2 O2 Flow FiO2 Time Delivery Rate 04/30/18 84 16:00 04/30/18 Nasal 4.0 14:28 Cannula 04/30/18 98.5 19 110/90 94 14:15 (97) Intake and Output 04/29/18 04/29/18 04/30/18 1414:59 22:59 06:59 IntakeIntake Total 35 ml BalanceBalance 35 ml Constitutional: distress Psych: no complaints Head: normocephalic Eyes: nl conjunctiva ENMT: nl external ears & nose Neck: supple, non-tender Respiratory: congested cough, diminished breath sounds Cardiovascular: regular rate and rhythm, nl pulses Gastrointestinal: soft, non-tender Extremities: other (Left foot dry gangrene, with erythema ) Neurological: DIETETICS DIRECTOR II-XII intact, nl mental status, nl speech, nl strength Skin: nl turgor Lymph: nl lymph nodes Results Result Diagram: 04/30/1862204/30/18622 Results 24hrs Laboratory Tests Test 04/30/18 06:09 04/30/18 06:13 04/30/18 06:19 04/30/18 06:23 Bedside Glucose 95 Blood Gas Specimen Blood arterial Source Arterial Blood 04/30/2018 7:14:08 Date Drawn AM Arterial Blood pH 7.436 (Temp corrected) Arterial Blood 36.8 pCO2 (Temp correct) Arterial Blood pO2 67.1 L (Temp corrected) Arterial Blood 24.2 HCO3 Arterial Blood 0.2 Base Excess Arterial Blood 92.6 L Oxygen Saturation William Test ACCEPTAB Arterial Blood Gas Left Radial Puncture Site Arterial 1.0 Blood Carboxyhemog lobin Arterial Blood 0.2 Methemoglobin Blood Gas A-a O2 146.9 H Differential Oxyhemoglobin 91.5 L Percent Blood Gas 37.0 Temperature Blood Gas Modality NASAL CANNULA FiO2 36.0 Blood Gas Notified Joanne Walker Blood Gas Notified 04/30/2018 7:31:40 Time AM POC Venous Lactate 3.6 *H White Blood Count 25.3 #H Red Blood Count 3.31 L Hemoglobin 10.9 L Hematocrit 33.5 L Mean Corpuscular 101.2 #H Volume Mean Corpuscular 32.9 Hemoglobin Mean Corpuscular 32.5 Hemoglobin Concent Red Cell 15.6 H Distribution Width Platelet Count 211 Mean Platelet 11.4 H Volume Immature 3.000 H Granulocytes % Neutrophils % 92.0 H Lymphocytes % 1.7 L Monocytes % 2.9 Eosinophils % 0.0 Basophils % 0.4 Nucleated Red 0.8 H Blood Cells % Immature 0.750 H Granulocytes # Neutrophils # 23.3 H Lymphocytes # 0.4 L Monocytes # 0.7 Eosinophils # 0.0 Basophils # 0.1 Nucleated Red 0.2 H Blood Cells # Prothrombin Time 14.4 # Prothrombin Time 1.1 Ratio INR International 1.11 Normalized Ratio Activated 34.[address] Time Sodium Level 134 L Potassium Level 3.8 Chloride Level 91 L Carbon Dioxide 25 Level Anion Gap 18 H Blood Urea 29 H Nitrogen Creatinine 5.06 H Est Glomerular 12 L Filtrat Rate mL/min Glucose Level 100 Hemoglobin A1c 8.7 H Calcium Level 8.5 Total Bilirubin 0.1 L Direct Bilirubin 0.00 Indirect Bilirubin 0.1 Aspartate Amino 54 H Transf (AST/SGOT) Alanine 26 Aminotransferase ( ALT/SGPT) Alkaline 1500 H Phosphatase Troponin I 0.103 Total Protein 8.0 Albumin 3.4 Globulin 4.60 H Albumin/Globulin 0.73 Ratio Test 04/30/18 06:29 04/30/18 06:42 04/30/18 07:23 04/30/18 08:12 Urine Color ERIC Urine Clarity CLOUDY A Urine pH 5.0 Urine Specific 1.024 [place] Urine Ketones TRACE A Urine Nitrite NEGATIVE Urine Bilirubin NEGATIVE Urine Urobilinogen NEGATIVE Urine Leukocyte TRACE A Esterase Urine Microscopic 60 H RBC Urine Microscopic 16 H WBC Urine Bacteria FEW A Urine Hemoglobin 2+ H Urine Glucose 1+ H Urine Total 1+ H Protein Bedside Glucose 73 70 120 Test 04/30/18 08:15 04/30/18 09:37 04/30/18 10:36 04/30/18 11:24 POC Venous Lactate 2.4 *H Bedside Glucose 185 243 H Lactic Acid Level 2.1 *H Test 04/30/18 12:29 04/30/18 14:53 Bedside Glucose 193 208 Medications Medication Current Medications Dextrose/Sodium Chloride 500 ml @ 125 mls/hr Q4H IV Last administered on 04/30/18at 06:36; Admin Dose 125 MLS/HR; Start 04/30/18 at 06:30 Dextrose 250 ml @ 125 mls/hr Q2H IV Last administered on 04/30/18at 09:30; Admin Dose 125 MLS/HR; Start 04/30/18 at 07:30 Norepinephrine 250 ml @ 1.875 mls/ hr TITRATE IV Last administered on 04/30/18at 07:30; Admin Dose 3.75 MLS/HR; Start 04/30/18 at 07:30 Acetaminophen (Tylenol Liquid) 650 mg Q6H PRN PO PAIN LEVEL 1-3 OR FEVER; Start 04/30/18 at 12:30 Hydromorphone HCl (Dilaudid) 0.5 mg Q4H PRN IV PAIN LEVEL 7-10; Start 04/30/18 at 12:30 Zolpidem Tartrate (Ambien) 5 mg QHS PRN PO INSOMNIA; Start 04/30/18 at 12:30 Docusate Sodium (Colace) 100 mg Q12H PRN PO CONSTIPATION; Start 04/30/18 at 12:30 Aspirin (Halfprin) 81 mg DAILY PO Last administered on 04/30/18at 13:20; Admin Dose 81 MG; Start 04/30/18 at 13:00 Atorvastatin Calcium (Lipitor) 80 mg QHS PO ; Start 04/30/18 at 21:00 Calcium Acetate (Phoslo) 667 mg WITH MEALS PO ; Start 04/30/18 at 17:35 Docusate Sodium (Colace) 100 mg BID PO Last administered on 04/30/18at 13:20; Admin Dose 100 MG; Start 04/30/18 at 13:00 Ferrous Sulfate (Ferrous Sulfate (Ec)) 325 mg BID PO ; Start 05/01/18 at 09:00 Acetaminophen/ Hydrocodone Bitart (Sultan (5/325)) 1 tab Q6H PRN PO PAIN LEVEL 6-10; Start 04/30/18 at 13:00 Insulin Glargine (Lantus) 25 units QHS SC ; Start 04/30/18 at 21:00 Mirtazapine (Remeron) 15 mg HS PO ; Start 04/30/18 at 21:00 Tamsulosin HCl (Flomax) 0.4 mg HS PO ; Start 04/30/18 at 21:00 Miscellaneous Information 1 ea NOTE XX ; Start 04/30/18 at 13:00 Glucose (Glutose) 15 gm Q15M PRN PO DECREASED GLUCOSE; Start 04/30/18 at 13:00 Glucose (Glutose) 22.5 gm Q15M PRN PO DECREASED GLUCOSE; Start 04/30/18 at 13:00 Dextrose (D50w Syringe) 25 ml Q15M PRN IV DECREASED GLUCOSE; Start 04/30/18 at 13:00 Dextrose (D50w Syringe) 50 ml Q15M PRN IV DECREASED GLUCOSE; Start 04/30/18 at 13:00 Glucagon (Glucagen) 1 mg Q15M PRN IM DECREASED GLUCOSE; Start 04/30/18 at 13:00 Glucose (Glutose) 15 gm Q15M PRN BUCCAL DECREASED GLUCOSE; Start 04/30/18 at 13:00 Insulin Aspart (Novolog Insulin Pen) NOVOLOG *MODERATE* ALGORITHM WITH MEALS BEDTIME SC ; Start 04/30/18 at 17:35 PERRY PARADA MD Apr 30, 2018 16:56
[2018-04-30] MEDS ORDERED: HEPARIN 1000 UNITS/ML 10 ML INJ CATHETER SCH (17:00)
[2018-04-30] MEDS ORDERED: ALBUMIN HUMAN 25% 100 ML IV PRN (17:00)
[2018-04-30] MEDS ORDERED: SODIUM CHLORIDE 0.9% 1L BAG IV PRN (17:00)
[2018-04-30] MEDS ORDERED: FUROSEMIDE 20 MG INJ IV ONE (17:00)
[2018-04-30] MEDS: CALCIUM ACETATE 667 MG CAP PO SCH (17:35)
[2018-04-30] MEDS: INSULIN ASPART [NOVOLOG] 3 ML PEN SC SCH ×2 (18:45→21:00)
[2018-04-30] MEDS ORDERED: TAMSULOSIN (SR) 0.4 MG CAP PO SCH (21:00)
[2018-04-30] MEDS ORDERED: MIRTAZAPINE 15 MG TAB PO SCH (21:00)
[2018-04-30] MEDS ORDERED: ATORVASTATIN 80 MG TAB PO SCH (21:00)
[2018-04-30] MEDS ORDERED: INSULIN GLARGINE [LANTus] (100 UNITS/ML) SYG SC SCH (21:00)
[2018-04-30] MEDS ORDERED: INSULIN GLARGINE [LANTus] (100 UNITS/ML) SYG SC ONE (21:30)
[2018-05-01] VITALS (63 sets, daily range): BP systolic 47–156; BP diastolic 15–143; PULSE 69–84; RESP 0–35
[2018-05-01] MEDS: NORepinephrine 8MG/250 ML (PMX 250 ML IV SCH (02:31)
[2018-05-01] MEDS: HYDROCODONE/APAP (5/325) TAB PO PRN ×2 (03:04→11:47)
[2018-05-01] MEDS: INSULIN ASPART [NOVOLOG] 3 ML PEN SC SCH ×3 (07:35→17:35)
[2018-05-01] MEDS: ASPIRIN (EC) 81 MG TAB PO SCH (08:47)
[2018-05-01] MEDS: CALCIUM ACETATE 667 MG CAP PO SCH ×3 (08:48→17:37)
[2018-05-01] MEDS: DOCUSATE SODIUM 100 MG CAP PO SCH (08:48)
[2018-05-01] MEDS ORDERED: INFLUENZA VIRUS VACCINE 0.5 ML (DISPENSING) IM* ONE (09:00)
[2018-05-01] MEDS ORDERED: FERROUS SULFATE (EC) 325 MG TAB PO SCH (09:00)
--- NOTE | 2018-05-01 09:52 | PN ---
Date/Time of Note Date/Time of Note DATE: 05/01/18 TIME: 09:48 Subjective Alert and oriented. Pain is well controlled. Remains on Levophed. Undergoing dialysis Objective Vitals Vital Signs Date Temp Pulse Resp B/P (MAP) Pulse Ox O2 O2 Flow FiO2 Time Delivery Rate 05/01/18 78 12 124/64 98 Nasal 2.0 08:15 (84) Cannula 05/01/18 98.5 04:00 Intake and Output 04/30/18 04/30/18 05/01/18 1515:00 23:00 07:00 IntakeIntake Total 110 ml 378 ml 282.75 ml OutputOutput Total 200 ml 80 ml 55 ml BalanceBalance -90 ml 298 ml 227.75 ml Neck supple no JVD Lungs with crackles at the bases Cardiac regular rate and rhythm Abdomen soft, nontender, normoactive bowel sounds Extremities left foot with dry gangrene involving the first 2 toes. Diffuse erythema involving the entire foot Results Result Diagram: 05/01/18 0420 05/01/18 0420 Medications Medications Current Medications Norepinephrine 250 ml @ 1.875 mls/ hr TITRATE IV Last administered on 05/01/18at 02:31; Admin Dose 22.5 MLS/HR; Start 04/30/18 at 07:30 Acetaminophen (Tylenol Liquid) 650 mg Q6H PRN PO PAIN LEVEL 1-3 OR FEVER; Start 04/30/18 at 12:30 Hydromorphone HCl (Dilaudid) 0.5 mg Q4H PRN IV PAIN LEVEL 7-10 Last administered on 04/30/18at 20:10; Admin Dose 0.5 MG; Start 04/30/18 at 12:30 Zolpidem Tartrate (Ambien) 5 mg QHS PRN PO INSOMNIA; Start 04/30/18 at 12:30 Docusate Sodium (Colace) 100 mg Q12H PRN PO CONSTIPATION; Start 04/30/18 at 12:30 Aspirin (Halfprin) 81 mg DAILY PO Last administered on 05/01/18at 08:47; Admin Dose 81 MG; Start 04/30/18 at 13:00 Atorvastatin Calcium (Lipitor) 80 mg QHS PO ; Start 04/30/18 at 21:00 Calcium Acetate (Phoslo) 667 mg WITH MEALS PO Last administered on 05/01/18at 08:48; Admin Dose 667 MG; Start 04/30/18 at 17:35 Docusate Sodium (Colace) 100 mg BID PO Last administered on 05/01/18at 08:48; Admin Dose 100 MG; Start 04/30/18 at 13:00 Ferrous Sulfate (Ferrous Sulfate (Ec)) 325 mg BID PO ; Start 05/01/18 at 09:00 Acetaminophen/ Hydrocodone Bitart ([place] (5/325)) 1 tab Q6H PRN PO PAIN LEVEL 6-10 Last administered on 05/01/18at 03:04; Admin Dose 1 TAB; Start 04/30/18 at 13:00 Insulin Glargine (Lantus) 25 units QHS SC ; Start 04/30/18 at 21:00 Mirtazapine (Remeron) 15 mg HS PO ; Start 04/30/18 at 21:00 Tamsulosin HCl (Flomax) 0.4 mg HS PO ; Start 04/30/18 at 21:00 Miscellaneous Information 1 ea NOTE XX ; Start 04/30/18 at 13:00 Glucose (Glutose) 15 gm Q15M PRN PO DECREASED GLUCOSE; Start 04/30/18 at 13:00 Glucose (Glutose) 22.5 gm Q15M PRN PO DECREASED GLUCOSE; Start 04/30/18 at 13:00 Dextrose (D50w Syringe) 25 ml Q15M PRN IV DECREASED GLUCOSE Last administered on 05/01/18at 08:56; Admin Dose 25 ML; Start 04/30/18 at 13:00 Dextrose (D50w Syringe) 50 ml Q15M PRN IV DECREASED GLUCOSE; Start 04/30/18 at 13:00 Glucagon (Glucagen) 1 mg Q15M PRN IM DECREASED GLUCOSE; Start 04/30/18 at 13:00 Glucose (Glutose) 15 gm Q15M PRN BUCCAL DECREASED GLUCOSE; Start 04/30/18 at 13:00 Insulin Aspart (Novolog Insulin Pen) NOVOLOG *MODERATE* ALGORITHM WITH MEALS BEDTIME SC Last administered on 04/30/18at 18:45; Admin Dose 4 UNIT; Start 04/30/18 at 17:35 Heparin Sodium (Porcine) (Heparin (1000 Units/ml)) 4,000 unit AFTER DIALYSIS CATHETER ; Start 04/30/18 at 17:00 Albumin Human 100 ml @ 100 mls/hr WITH DIALYSIS PRN IV SBP <90 DURING DIALYSIS; Start 04/30/18 at 17:00 Sodium Chloride (NS) -To prime the dialy... 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 Arterial study shows no flow in the dorsalis pedis and posterior tibial Type 2 diabetes mellitus End-stage renal disease, on hemodialysis History of hypertension COPD Wean off levofed Transfer to telemetry if hemodynamically stable Patient will most likely need left below-knee amputation Case was discussed with his vascular surgeon Dr. March Family member was notified of the findings SACHI ISLAS MD May 01, 2018 09:52
[2018-05-01] MEDS ORDERED: HEPARIN 1000 UNITS/ML 10 ML INJ CATHETER SCH (10:00)
[2018-05-01] MEDS ORDERED: CEFEPIME 1GM/50 ML (PMX) 50 ML IVPB SCH (11:00)
[2018-05-01] MEDS ORDERED: VANCOMYCIN IV PER PHARMACY XX SCH (11:00)
[2018-05-01] MEDS ORDERED: LACTOBACILLUS RHAMNOSUS CAP PO SCH (11:00)
--- NOTE | 2018-05-01 11:36 | CONS ---
Assessment/Plan Assessment/Plan Assessment/Plan (Daily) 1. acute fluid [place], pulmonary edema - missed HD today 2. Septic shock on Levophed 3. ESRD on HD MWF schedule at [facility] 4. H./o hypertension 5. H/o DM II 6. H/o HL 7. Left foot dry gangrene, Left foot cellulitis 8. H/o CAD s/p CABG 9. H/O PAD 10. H/o COPD Plan: s/p HD today AM pt CT Chest showed bronchitis and pulmonary edema, pt refused to stay in hospital and he left AMA IV abx as per ID , renally dose all abx and monitor electrolytes, ID Dr. Red following s/p Podiatry by Dr. Bulmaro Le follow up Consultation Date/Type/Reason Admit Date/Time Apr 30, 2018 at 08:30 Initial Consult Date 04/30/18 Type of Consult NEPHROLOGY Requesting Provider: SACHI ISLAS MD Date/Time of Note DATE: 05/01/18 TIME: 11:36 Exam/Review of Systems Exam Vitals Vital Signs Date Temp Pulse Resp B/P (MAP) Pulse Ox O2 O2 Flow FiO2 Time Delivery Rate 05/01/18 70 09:45 05/01/18 16 153/69 100 09:30 (97) 05/01/18 Nasal 2.0 09:00 Cannula 05/01/18 97.6 08:00 Intake and Output 04/30/18 04/30/18 05/01/18 1515:00 23:00 07:00 IntakeIntake Total 110 ml 378 ml 282.75 ml OutputOutput Total 200 ml 80 ml 55 ml BalanceBalance -90 ml 298 ml 227.75 ml Results Result Diagram: 05/01/18 0420 05/01/18 0420 Results 24hrs Laboratory Tests Test 04/30/18 12:29 04/30/18 14:53 04/30/18 17:34 04/30/18 18:43 Bedside Glucose 193 208 185 187 Test 04/30/18 21:23 04/30/18 22:30 05/01/18 04:20 05/01/18 09:27 Bedside Glucose 117 110 95 White Blood Count 25.5 H Red Blood Count 3.23 L Hemoglobin 10.5 L Hematocrit 32.2 L Mean Corpuscular Volume 99.7 Mean Corpuscular 32.5 Hemoglobin Mean Corpuscular 32.6 Hemoglobin Concent Red Cell Distribution 15.9 H Width Platelet Count 234 Mean Platelet Volume 11.1 H Immature Granulocytes % 1.300 H Neutrophils % Segmented Neutrophils 90 H % (Manual) Lymphocytes % Lymphocytes % (Manual) 3 L Reactive Lymphocytes 2 H % (Manual) Monocytes % Monocytes % (Manual) 5 Eosinophils % Basophils % Nucleated Red Blood 0.3 H Cells % Immature Granulocytes # 0.320 H Neutrophils # Lymphocytes (Manual) 0.7 L Lymphocytes # Reactive Lymphocytes # 0.5 H Monocytes # Monocytes # (Manual) 1.2 H Eosinophils # Basophils # Nucleated Red Blood Cells # Platelet Estimate NORMAL Polychromasia 1+ Anisocytosis 3+ Macrocytosis 3+ Sodium Level 129 L Potassium Level 4.7 Chloride Level 89 L Carbon Dioxide Level 25 Anion Gap 15 H Blood Urea Nitrogen 36 H Creatinine 5.64 H Est Glomerular Filtrat 10 L Rate mL/min Glucose Level 74 Calcium Level 8.3 L Medications Medication Current Medications Norepinephrine 250 ml @ 1.875 mls/ hr TITRATE IV Last administered on 05/01/18at 02:31; Admin Dose 22.5 MLS/HR; Start 04/30/18 at 07:30 Acetaminophen (Tylenol Liquid) 650 mg Q6H PRN PO PAIN LEVEL 1-3 OR FEVER; Start 04/30/18 at 12:30 Hydromorphone HCl (Dilaudid) 0.5 mg Q4H PRN IV PAIN LEVEL 7-10 Last administered on 04/30/18at 20:10; Admin Dose 0.5 MG; Start 04/30/18 at 12:30 Zolpidem Tartrate (Ambien) 5 mg QHS PRN PO INSOMNIA; Start 04/30/18 at 12:30 Docusate Sodium (Colace) 100 mg Q12H PRN PO CONSTIPATION; Start 04/30/18 at 12:30 Aspirin (Halfprin) 81 mg DAILY PO Last administered on 05/01/18at 08:47; Admin Dose 81 MG; Start 04/30/18 at 13:00 Atorvastatin Calcium (Lipitor) 80 mg QHS PO ; Start 04/30/18 at 21:00 Calcium Acetate (Phoslo) 667 mg WITH MEALS PO Last administered on 05/01/18at 08:48; Admin Dose 667 MG; Start 04/30/18 at 17:35 Docusate Sodium (Colace) 100 mg BID PO Last administered on 05/01/18at 08:48; Admin Dose 100 MG; Start 04/30/18 at 13:00 Ferrous Sulfate (Ferrous Sulfate (Ec)) 325 mg BID PO ; Start 05/01/18 at 09:00 Acetaminophen/ Hydrocodone Bitart ([place] (5/325)) 1 tab Q6H PRN PO PAIN LEVEL 6-10 Last administered on 05/01/18at 03:04; Admin Dose 1 TAB; Start 04/30/18 at 13:00 Insulin Glargine (Lantus) 25 units QHS SC ; Start 04/30/18 at 21:00 Mirtazapine (Remeron) 15 mg HS PO ; Start 04/30/18 at 21:00 Tamsulosin HCl (Flomax) 0.4 mg HS PO ; Start 04/30/18 at 21:00 Miscellaneous Information 1 ea NOTE XX ; Start 04/30/18 at 13:00 Glucose (Glutose) 15 gm Q15M PRN PO DECREASED GLUCOSE; Start 04/30/18 at 13:00 Glucose (Glutose) 22.5 gm Q15M PRN PO DECREASED GLUCOSE; Start 04/30/18 at 13:00 Dextrose (D50w Syringe) 25 ml Q15M PRN IV DECREASED GLUCOSE Last administered on 05/01/18at 08:56; Admin Dose 25 ML; Start 04/30/18 at 13:00 Dextrose (D50w Syringe) 50 ml Q15M PRN IV DECREASED GLUCOSE; Start 04/30/18 at 13:00 Glucagon (Glucagen) 1 mg Q15M PRN IM DECREASED GLUCOSE; Start 04/30/18 at 13:00 Glucose (Glutose) 15 gm Q15M PRN BUCCAL DECREASED GLUCOSE; Start 04/30/18 at 13:00 Insulin Aspart (Novolog Insulin Pen) NOVOLOG *MODERATE* ALGORITHM WITH MEALS BEDTIME SC Last administered on 04/30/18at 18:45; Admin Dose 4 UNIT; Start 04/30/18 at 17:35 Albumin Human 100 ml @ 100 mls/hr WITH DIALYSIS PRN IV SBP <90 DURING DIALYSIS; Start 04/30/18 at 17:00 Sodium Chloride (NS) -To prime the dialy... DIRECTED FOR HD PRN IV HD; Start 04/30/18 at 17:00 Heparin Sodium (Porcine) (Heparin (1000 Units/ml)) 4,500 unit AFTER DIALYSIS CATHETER ; Start 05/01/18 at 10:00 Lactobacillus Acidophilus/ Rhamnosus (Culturelle) 1 cap BID PO ; Start 05/01/18 at 11:00 Vancomycin HCl (Vanco Iv Per Pharmacy) VANCOMYCIN PER PHARMACY PER PROTOCOL XX ; Start 05/01/18 at 11:00 Cefepime HCl 50 ml @ 100 mls/hr Q24H IVPB ; Start 05/01/18 at 11:00 PERRY PARADA MD May 01, 2018 11:36
--- NOTE | 2018-05-01 12:16 | CONS ---
Assessment/Plan Assessment/Plan Hospital Course (Demo Recall) No acute changes overnight patient is finishing dialysis he is in no distress, alert oriented and looks comfortable, she is on Levophed drip. WBC 25.5 H&H 10.5 and 32.2 platelets 234 neutrophils 90 Indwelling: Right chest permacath left chest triple lumen catheter and peripheral IV Antimicrobials: Vancomycin, cefepime Microbiology: Blood cultures remain negative urine culture negative Chest x-ray from yesterday revealed bilateral interstitial opacities, right greater than left with additional right mid to lower lung airspace opacities representing edema versus pneumonia. Extremity arterial study revealed no flow in bilateral dorsalis pedis and posterior tibial arteries patent left common femoral femoral artery to tibial artery bypass graft. Probable severe stenosis right common femoral artery with elevated velocities X-ray of left foot revealed soft tissue swelling with evidence of soft tissue air at the great toe Physical examination: Well-developed well-nourished fragile middle-aged man who looks older for his age the patient is in no distress. Head atraumatic normo cephalic sclera nonicteric. Neck is supple. Chest rise symmetrical breath sounds clear. Heart: S1-S2. Abdomen soft bowel sounds present. Extremities: Right lower extremity cool to touch, left lower extremity with gangrenous changes and erythema Assessment: 1. Severe sepsis with shock 2. Severe peripheral arterial disease status post left fempop bypass a week ago 3. Left foot gangrene/cellulitis 4. Possible healthcare associated pneumonia 5. Coronary artery disease with history of CABG 7. End-stage renal disease, hemodialysis dependent 8. Diabetes Plan: Clinically stable, on broad-spectrum antibiotics, followed by vascular and podiatry teams, needs left below-knee amputation. Patient is requesting to be transferred to another facility admission feels. Consultation Date/Type/Reason Admit Date/Time Apr 30, 2018 at 08:30 Initial Consult Date 04/30/18 Type of Consult id Requesting Provider: SACHI ISLAS MD Date/Time of Note DATE: 05/01/18 TIME: 12:15 Exam/Review of Systems Exam Vitals Vital Signs Date Temp Pulse Resp B/P (MAP) Pulse Ox O2 O2 Flow FiO2 Time Delivery Rate 05/01/18 78 11:20 05/01/18 16 153/69 100 09:30 (97) 05/01/18 Nasal 2.0 09:00 Cannula 05/01/18 97.6 08:00 Intake and Output 04/30/18 04/30/18 05/01/18 1515:00 23:00 07:00 IntakeIntake Total 110 ml 378 ml 282.75 ml OutputOutput Total 200 ml 80 ml 55 ml BalanceBalance -90 ml 298 ml 227.75 ml Results Result Diagram: 05/01/18 0420 05/01/18 0420 Results 24hrs Laboratory Tests Test 04/30/18 12:29 04/30/18 14:53 04/30/18 17:34 04/30/18 18:43 Bedside Glucose 193 208 185 187 Test 04/30/18 21:23 04/30/18 22:30 05/01/18 04:20 05/01/18 08:16 Bedside Glucose 117 110 White Blood Count 25.5 H Red Blood Count 3.23 L Hemoglobin 10.5 L Hematocrit 32.2 L Mean Corpuscular Volume 99.7 Mean Corpuscular 32.5 Hemoglobin Mean Corpuscular 32.6 Hemoglobin Concent Red Cell Distribution 15.9 H Width Platelet Count 234 Mean Platelet Volume 11.1 H Immature Granulocytes % 1.300 H Neutrophils % Segmented Neutrophils 90 H % (Manual) Lymphocytes % Lymphocytes % (Manual) 3 L Reactive Lymphocytes 2 H % (Manual) Monocytes % Monocytes % (Manual) 5 Eosinophils % Basophils % Nucleated Red Blood 0.3 H Cells % Immature Granulocytes # 0.320 H Neutrophils # Lymphocytes (Manual) 0.7 L Lymphocytes # Reactive Lymphocytes # 0.5 H Monocytes # Monocytes # (Manual) 1.2 H Eosinophils # Basophils # Nucleated Red Blood Cells # Platelet Estimate NORMAL Polychromasia 1+ Anisocytosis 3+ Macrocytosis 3+ Sodium Level 129 L Potassium Level 4.7 Chloride Level 89 L Carbon Dioxide Level 25 Anion Gap 15 H Blood Urea Nitrogen 36 H Creatinine 5.64 H Est Glomerular Filtrat 10 L Rate mL/min Glucose Level 74 Calcium Level 8.3 L Hepatitis B Surface NEGATIVE Antigen Test 05/01/18 09:27 05/01/18 11:55 Bedside Glucose 95 82 Medications Medication Current Medications Norepinephrine 250 ml @ 1.875 mls/ hr TITRATE IV Last administered on 05/01/18at 02:31; Admin Dose 22.5 MLS/HR; Start 04/30/18 at 07:30 Acetaminophen (Tylenol Liquid) 650 mg Q6H PRN PO PAIN LEVEL 1-3 OR FEVER; Start 04/30/18 at 12:30 Hydromorphone HCl (Dilaudid) 0.5 mg Q4H PRN IV PAIN LEVEL 7-10 Last administered on 04/30/18at 20:10; Admin Dose 0.5 MG; Start 04/30/18 at 12:30 Zolpidem Tartrate (Ambien) 5 mg QHS PRN PO INSOMNIA; Start 04/30/18 at 12:30 Docusate Sodium (Colace) 100 mg Q12H PRN PO CONSTIPATION; Start 04/30/18 at 12:30 Aspirin (Halfprin) 81 mg DAILY PO Last administered on 05/01/18 08:47; Admin Dose 81 MG; Start 04/30/18 at 13:00 Atorvastatin Calcium (Lipitor) 80 mg QHS PO ; Start 04/30/18 at 21:00 Calcium Acetate (Phoslo) 667 mg WITH MEALS PO Last administered on 05/01/18at 11:47; Admin Dose 667 MG; Start 04/30/18 at 17:35 Docusate Sodium (Colace) 100 mg BID PO Last administered on 05/01/18 08:48; Admin Dose 100 MG; Start 04/30/18 at 13:00 Ferrous Sulfate (Ferrous Sulfate (Ec)) 325 mg BID PO Last administered on 05/01/18 11:46; Admin Dose 325 MG; Start 05/01/18 at 09:00 Acetaminophen/ Hydrocodone Bitart ([place] (5/325)) 1 tab Q6H PRN PO PAIN LEVEL 6-10 Last administered on 05/01/18 11:47; Admin Dose 1 TAB; Start 04/30/18 at 13:00 Insulin Glargine (Lantus) 25 units QHS SC ; Start 04/30/18 at 21:00 Mirtazapine (Remeron) 15 mg HS PO ; Start 04/30/18 at 21:00 Tamsulosin HCl (Flomax) 0.4 mg HS PO ; Start 04/30/18 at 21:00 Miscellaneous Information 1 ea NOTE XX ; Start 04/30/18 at 13:00 Glucose (Glutose) 15 gm Q15M PRN PO DECREASED GLUCOSE; Start 04/30/18 at 13:00 Glucose (Glutose) 22.5 gm Q15M PRN PO DECREASED GLUCOSE; Start 04/30/18 at 13:00 Dextrose (D50w Syringe) 25 ml Q15M PRN IV DECREASED GLUCOSE Last administered on 05/01/18at 08:56; Admin Dose 25 ML; Start 04/30/18 at 13:00 Dextrose (D50w Syringe) 50 ml Q15M PRN IV DECREASED GLUCOSE; Start 04/30/18 at 13:00 Glucagon (Glucagen) 1 mg Q15M PRN IM DECREASED GLUCOSE; Start 04/30/18 at 13:00 Glucose (Glutose) 15 gm Q15M PRN BUCCAL DECREASED GLUCOSE; Start 04/30/18 at 13:00 Insulin Aspart (Novolog Insulin Pen) NOVOLOG *MODERATE* ALGORITHM WITH MEALS BEDTIME SC Last administered on 04/30/18at 18:45; Admin Dose 4 UNIT; Start 04/30/18 at 17:35 Albumin Human 100 ml @ 100 mls/hr WITH DIALYSIS PRN IV SBP <90 DURING DIALYSIS; Start 04/30/18 at 17:00 Sodium Chloride (NS) -To prime the dialy... DIRECTED FOR HD PRN IV HD; Start 04/30/18 at 17:00 Heparin Sodium (Porcine) (Heparin (1000 Units/ml)) 4,500 unit AFTER DIALYSIS CATHETER Last administered on 05/01/18at 11:46; Admin Dose 4,500 UNIT; Start 05/01/18 at 10:00 Lactobacillus Acidophilus/ Rhamnosus (Culturelle) 1 cap BID PO Last administered on 05/01/18at 11:46; Admin Dose 1 CAP; Start 05/01/18 at 11:00 Vancomycin HCl (Vanco Iv Per Pharmacy) VANCOMYCIN PER PHARMACY PER PROTOCOL XX ; Start 05/01/18 at 11:00 Cefepime HCl 50 ml @ 100 mls/hr Q24H IVPB Last administered on 05/01/18at 11:47; Admin Dose 100 MLS/HR; Start 05/01/18 at 11:00 Miscellaneous Information (*Rx Drug Level Order Reminder*) VANCO RANDOM W/ AM LABS... ONCE ONCE XX ; Start 05/02/18 at 05:00; Stop 05/02/18 at 05:01 RAOUL LION NP May 01, 2018 12:16
--- NOTE | 2018-05-01 12:50 | CONS ---
Assessment/Plan Assessment/Plan Hospital Course (Demo Recall) Gangrene, cellulitis lower extremity Sepsis CAD with history of CABG End-stage renal disease on hemodialysis Cardiomyopathy with ejection fraction 35% echocardiogram June 2015 Hypotension, on IV pressor Active smoker -Patient presents with gangrene insulators of lower extremity undergoing further evaluation and care. Is currently on antibiotics -Patient with known history of cardia myopathy with ejection fraction 35%. Would repeat echocardiogram. Check serial cardiac enzymes. -Discussed with nursing staff, plans to titrate off IV pressor. Hold any antihypertensive at the current time. -Continue aspirin and statin therapy Consultation Date/Type/Reason Admit Date/Time Apr 30, 2018 at 08:30 Type of Consult Cardiology Reason for Consultation Shortness of breath Date/Time of Note DATE: 05/01/18 TIME: 12:40 Hx of Present Illness This is a 57-year-old male with past medical history of CAD with CABG, cardiomyopathy, end-stage renal disease on hemodialysis, severe peripheral arterial disease was found at home with altered mental status and hypoglycemia. Patient found to have cellulitis of lower extremities and gangrene. Including progress notes, recommendations are for BKA of lower extremity. 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 Cardiology consultation was requested for further evaluation. Patient just finished hemodialysis now. He denies any current shortness of breath. He denies chest pain at rest or with exertion. He denies dizziness or palpitations 12 point review of systems was performed with all pertinent positives and negatives mentioned above and all else is negative Past Medical History Medical History: coronary artery disease, diabetes, high cholesterol, hypertension, renal disease Home Meds Active Scripts Piperacillin/Tazobactam Sod (ZOSYN) 2.25 Gm Soln, 2.25 GM IV Q12 for 7 Days, EA Prov:SACHI ISLAS MD 04/30/18 Reported Medications Hydroxyzine Hcl* (Hydroxyzine Hcl*) 25 Mg Tablet, 25 MG PO Q8H PRN for ITCHING, #30 TAB 04/30/18 Polyethylene Glycol 3350 (GAVILAX) 8.5 Gm Powd.pack, 8.5 GM PO DAILY 04/30/18 Diclofenac Sodium* (Voltaren* Gel) 1% -100 Gm Gel, 2 GM TOP QID, #1 TUB 04/30/18 Hydrocodone/Acetaminophen ([place] 5-325 Tablet) 1 Each Tablet, 1 TAB PO Q6H PRN for PAIN LEVEL 6-10, TAB 04/30/18 Calcium Acetate* (Calcium Acetate*) 667 Mg Capsule, 667 MG PO WITH MEALS, #30 CAP 04/30/18 Tamsulosin Hcl* (Tamsulosin Hcl*) 0.4 Mg Cap.er.24h, 0.4 MG PO HS, CAP 04/30/18 Buspirone Hcl* (Buspirone Hcl*) 15 Mg Tablet, 1 TAB ORAL DAILY 04/30/18 Mirtazapine* (Mirtazapine*) 15 Mg Tablet, 15 MG PO HS, TAB 04/30/18 Omeprazole* (Omeprazole*) 20 Mg Capsule.dr, 20 MG PO DAILY, #30 CAP 04/04/17 Carvedilol* (Carvedilol*) 6.25 Mg Tablet, 6.25 MG PO BID, #60 TAB 04/04/17 Docusate Sodium* (Docusate Sodium*) 100 Mg Capsule, 100 MG PO BID, #60 CAP 04/04/17 Ferrous Sulfate* (Ferrous Sulfate*) 325 Mg Tabec, 325 MG PO BID, TAB 04/04/17 Zolpidem Tartrate* (Zolpidem Tartrate*) 5 Mg Tablet, 5 MG PO QHS PRN for INSOMNIA, #30 TAB 04/04/17 Lorazepam* (Lorazepam*) 1 Mg Tablet, 2 MG PO BID PRN for ANXIETY, #30 TAB 04/04/17 Atorvastatin* (Atorvastatin*) 80 Mg Tablet, 80 MG PO QHS, #30 TAB 04/04/17 Losartan Potassium* (Losartan Potassium*) 50 Mg Tablet, 50 MG PO DAILY, TAB 04/04/17 Hydralazine Hcl* (Hydralazine Hcl*) 100 Mg Tablet, 100 MG PO Q8, #90 TAB 04/04/17 Aspirin* (Aspirin* EC) 81 Mg Tablet.dr, 81 MG PO DAILY, TAB 04/04/17 Ascorbic Acid (Vitamin C) 250 Mg Tab, 250 MG PO DAILY, TAB 04/04/17 Clopidogrel Bisulfate (Clopidogrel) 75 Mg Tablet, 75 MG PO DAILY, #30 TAB 04/04/17 Gabapentin* (Gabapentin*) 300 Mg Capsule, 300 MG PO BID, #60 CAP 04/04/17 Furosemide* (Furosemide*) 40 Mg Tablet, 40 MG PO DAILY, TAB 04/04/17 Amlodipine Besylate* (Amlodipine Besylate*) 2.5 Mg Tablet, 2.5 MG PO DAILY, #30 TAB 04/04/17 Insulin Glargine* (Lantus*) 100 Unit/Ml Soln, 28-36 UNIT SC QHS, #1 VIAL 04/04/17 Albuterol Sulfate* (Ventolin HFA*) 18 Gm Hfa.aer.ad, 2 PUFF INHALATION Q6H PRN for WHEEZING AND SOB, #1 INHALER 04/04/17 Discontinued Reported Medications Amoxicillin/Potassium Clav (Amox-Clav 875-125 mg Tablet) 875-125 mg Tab, 1 TAB PO BID, #20 TAB 04/30/18 Insulin Lispro (Humalog) 100 Unit/1 Ml Cartridge, 0-20 UNIT SQ AC MEALS, EA 04/04/17 Bupropion Hcl* (Bupropion XL*) 150 Mg Tab.er.24h, 150 MG PO DAILY, TAB.SA 04/04/17 Medications Current Medications Norepinephrine 250 ml @ 1.875 mls/ hr TITRATE IV Last administered on 05/01/18at 02:31; Admin Dose 22.5 MLS/HR; Start 04/30/18 at 07:30 Acetaminophen (Tylenol Liquid) 650 mg Q6H PRN PO PAIN LEVEL 1-3 OR FEVER; Start 04/30/18 at 12:30 Hydromorphone HCl (Dilaudid) 0.5 mg Q4H PRN IV PAIN LEVEL 7-10 Last administered on 04/30/18at 20:10; Admin Dose 0.5 MG; Start 04/30/18 at 12:30 Zolpidem Tartrate (Ambien) 5 mg QHS PRN PO INSOMNIA; Start 04/30/18 at 12:30 Docusate Sodium (Colace) 100 mg Q12H PRN PO CONSTIPATION; Start 04/30/18 at 12:30 Aspirin (Halfprin) 81 mg DAILY PO Last administered on 05/01/18at 08:47; Admin Dose 81 MG; Start 04/30/18 at 13:00 Atorvastatin Calcium (Lipitor) 80 mg QHS PO ; Start 04/30/18 at 21:00 Calcium Acetate (Phoslo) 667 mg WITH MEALS PO Last administered on 05/01/18 11:47; Admin Dose 667 MG; Start 04/30/18 at 17:35 Docusate Sodium (Colace) 100 mg BID PO Last administered on 05/01/18at 08:48; Admin Dose 100 MG; Start 04/30/18 at 13:00 Ferrous Sulfate (Ferrous Sulfate (Ec)) 325 mg BID PO Last administered on 05/01/18at 11:46; Admin Dose 325 MG; Start 05/01/18 at 09:00 Acetaminophen/ Hydrocodone Bitart ([place] (5/325)) 1 tab Q6H PRN PO PAIN LEVEL 6-10 Last administered on 05/01/18at 11:47; Admin Dose 1 TAB; Start 04/30/18 at 13:00 Insulin Glargine (Lantus) 25 units QHS SC ; Start 04/30/18 at 21:00 Mirtazapine (Remeron) 15 mg HS PO ; Start 04/30/18 at 21:00 Tamsulosin HCl (Flomax) 0.4 mg HS PO ; Start 04/30/18 at 21:00 Miscellaneous Information 1 ea NOTE XX ; Start 04/30/18 at 13:00 Glucose (Glutose) 15 gm Q15M PRN PO DECREASED GLUCOSE; Start 04/30/18 at 13:00 Glucose (Glutose) 22.5 gm Q15M PRN PO DECREASED GLUCOSE; Start 04/30/18 at 13:00 Dextrose (D50w Syringe) 25 ml Q15M PRN IV DECREASED GLUCOSE Last administered on 05/01/18at 08:56; Admin Dose 25 ML; Start 04/30/18 at 13:00 Dextrose (D50w Syringe) 50 ml Q15M PRN IV DECREASED GLUCOSE; Start 04/30/18 at 13:00 Glucagon (Glucagen) 1 mg Q15M PRN IM DECREASED GLUCOSE; Start 04/30/18 at 13:00 Glucose (Glutose) 15 gm Q15M PRN BUCCAL DECREASED GLUCOSE; Start 04/30/18 at 13:00 Insulin Aspart (Novolog Insulin Pen) NOVOLOG *MODERATE* ALGORITHM WITH MEALS BEDTIME SC Last administered on 04/30/18at 18:45; Admin Dose 4 UNIT; Start 04/30/18 at 17:35 Albumin Human 100 ml @ 100 mls/hr WITH DIALYSIS PRN IV SBP <90 DURING DIALYSIS; Start 04/30/18 at 17:00 Sodium Chloride (NS) -To prime the dialy... DIRECTED FOR HD PRN IV HD; Start 04/30/18 at 17:00 Heparin Sodium (Porcine) (Heparin (1000 Units/ml)) 4,500 unit AFTER DIALYSIS CATHETER Last administered on 05/01/18at 11:46; Admin Dose 4,500 UNIT; Start 05/01/18 at 10:00 Lactobacillus Acidophilus/ Rhamnosus (Culturelle) 1 cap BID PO Last administered on 05/01/18at 11:46; Admin Dose 1 CAP; Start 05/01/18 at 11:00 Vancomycin HCl (Vanco Iv Per Pharmacy) VANCOMYCIN PER PHARMACY PER PROTOCOL XX ; Start 05/01/18 at 11:00 Cefepime HCl 50 ml @ 100 mls/hr Q24H IVPB Last administered on 05/01/18at 11:47; Admin Dose 100 MLS/HR; Start 05/01/18 at 11:00 Miscellaneous Information (*Rx Drug Level Order Reminder*) VANCO RANDOM W/ AM LABS... ONCE ONCE XX ; Start 05/02/18 at 05:00; Stop 05/02/18 at 05:01 Allergies: Coded Allergies: No Known Allergy (Unverified , 04/30/18) Past Surgical History Past Surgical Hx: coronary bypass surgery, other Social History Alcohol Use: occasionally Smoking Status: Current every day smoker Exam/Review of Systems Vital Signs Vitals Vital Signs Date Temp Pulse Resp B/P (MAP) Pulse Ox O2 O2 Flow FiO2 Time Delivery Rate 05/01/18 78 11:20 05/01/18 16 153/69 100 09:30 (97) 05/01/18 Nasal 2.0 09:00 Cannula 05/01/18 97.6 08:00 Intake and Output 04/30/18 04/30/18 05/01/18 1515:00 23:00 07:00 IntakeIntake Total 110 ml 378 ml 332.75 ml OutputOutput Total 200 ml 80 ml 60 ml BalanceBalance -90 ml 298 ml 272.75 ml Exam Constitutional: alert, oriented (No apparent distress, speaking in complete sentences, family bedside) Head: normocephalic Respiratory: other (Coarse breath sounds bilaterally, no wheezing) Cardiovascular: regular rate and rhythm, other (S1-S2 heard) Gastrointestinal: soft, non-tender, bowel sounds Extremities: other (Gangrene of left foot, edema of left foot) Labs Result Diagram: 05/01/18 0420 05/01/18 0420 Results 24hrs Laboratory Tests Test 04/30/18 14:53 04/30/18 17:34 04/30/18 18:43 04/30/18 21:23 Bedside Glucose 208 185 187 117 Test 04/30/18 22:30 05/01/18 04:20 05/01/18 08:16 05/01/18 09:27 Bedside Glucose 110 95 White Blood Count 25.5 H Red Blood Count 3.23 L Hemoglobin 10.5 L Hematocrit 32.2 L Mean Corpuscular Volume 99.7 Mean Corpuscular 32.5 Hemoglobin Mean Corpuscular 32.6 Hemoglobin Concent Red Cell Distribution 15.9 H Width Platelet Count 234 Mean Platelet Volume 11.1 H Immature Granulocytes % 1.300 H Neutrophils % Segmented Neutrophils 90 H % (Manual) Lymphocytes % Lymphocytes % (Manual) 3 L Reactive Lymphocytes 2 H % (Manual) Monocytes % Monocytes % (Manual) 5 Eosinophils % Basophils % Nucleated Red Blood 0.3 H Cells % Immature Granulocytes # 0.320 H Neutrophils # Lymphocytes (Manual) 0.7 L Lymphocytes # Reactive Lymphocytes # 0.5 H Monocytes # Monocytes # (Manual) 1.2 H Eosinophils # Basophils # Nucleated Red Blood Cells # Platelet Estimate NORMAL Polychromasia 1+ Anisocytosis 3+ Macrocytosis 3+ Sodium Level 129 L Potassium Level 4.7 Chloride Level 89 L Carbon Dioxide Level 25 Anion Gap 15 H Blood Urea Nitrogen 36 H Creatinine 5.64 H Est Glomerular Filtrat 10 L Rate mL/min Glucose Level 74 Calcium Level 8.3 L Hepatitis B Surface NEGATIVE Antigen Hepatitis B Surface NEGATIVE Antibody Test 05/01/18 11:55 Bedside Glucose 82 Imaging Imaging ECG performed yesterday demonstrates sinus rhythm at 91 bpm, QRS 98 ms, nonspecific ST abnormalities Medications Medications Current Medications Norepinephrine 250 ml @ 1.875 mls/ hr TITRATE IV Last administered on 05/01/18at 02:31; Admin Dose 22.5 MLS/HR; Start 04/30/18 at 07:30 Acetaminophen (Tylenol Liquid) 650 mg Q6H PRN PO PAIN LEVEL 1-3 OR FEVER; Start 04/30/18 at 12:30 Hydromorphone HCl (Dilaudid) 0.5 mg Q4H PRN IV PAIN LEVEL 7-10 Last administered on 04/30/18at 20:10; Admin Dose 0.5 MG; Start 04/30/18 at 12:30 Zolpidem Tartrate (Ambien) 5 mg QHS PRN PO INSOMNIA; Start 04/30/18 at 12:30 Docusate Sodium (Colace) 100 mg Q12H PRN PO CONSTIPATION; Start 04/30/18 at 12:30 Aspirin (Halfprin) 81 mg DAILY PO Last administered on 05/01/18 08:47; Admin Dose 81 MG; Start 04/30/18 at 13:00 Atorvastatin Calcium (Lipitor) 80 mg QHS PO ; Start 04/30/18 at 21:00 Calcium Acetate (Phoslo) 667 mg WITH MEALS PO Last administered on 05/01/18 11:47; Admin Dose 667 MG; Start 04/30/18 at 17:35 Docusate Sodium (Colace) 100 mg BID PO Last administered on 05/01/18 08:48; Admin Dose 100 MG; Start 04/30/18 at 13:00 Ferrous Sulfate (Ferrous Sulfate (Ec)) 325 mg BID PO Last administered on 05/01/18 11:46; Admin Dose 325 MG; Start 05/01/18 at 09:00 Acetaminophen/ Hydrocodone Bitart ([place] (5/325)) 1 tab Q6H PRN PO PAIN LEVEL 6-10 Last administered on 05/01/18 11:47; Admin Dose 1 TAB; Start 04/30/18 at 13:00 Insulin Glargine (Lantus) 25 units QHS SC ; Start 04/30/18 at 21:00 Mirtazapine (Remeron) 15 mg HS PO ; Start 04/30/18 at 21:00 Tamsulosin HCl (Flomax) 0.4 mg HS PO ; Start 04/30/18 at 21:00 Miscellaneous Information 1 ea NOTE XX ; Start 04/30/18 at 13:00 Glucose (Glutose) 15 gm Q15M PRN PO DECREASED GLUCOSE; Start 04/30/18 at 13:00 Glucose (Glutose) 22.5 gm Q15M PRN PO DECREASED GLUCOSE; Start 04/30/18 at 13:00 Dextrose (D50w Syringe) 25 ml Q15M PRN IV DECREASED GLUCOSE Last administered o n 05/01/18at 08:56; Admin Dose 25 ML; Start 04/30/18 at 13:00 Dextrose (D50w Syringe) 50 ml Q15M PRN IV DECREASED GLUCOSE; Start 04/30/18 at 13:00 Glucagon (Glucagen) 1 mg Q15M PRN IM DECREASED GLUCOSE; Start 04/30/18 at 13:00 Glucose (Glutose) 15 gm Q15M PRN BUCCAL DECREASED GLUCOSE; Start 04/30/18 at 13:00 Insulin Aspart (Novolog Insulin Pen) NOVOLOG *MODERATE* ALGORITHM WITH MEALS BEDTIME SC Last administered on 04/30/18at 18:45; Admin Dose 4 UNIT; Start 04/30/18 at 17:35 Albumin Human 100 ml @ 100 mls/hr WITH DIALYSIS PRN IV SBP <90 DURING DIALYSIS; Start 04/30/18 at 17:00 Sodium Chloride (NS) -To prime the dialy... DIRECTED FOR HD PRN IV HD; Start 04/30/18 at 17:00 Heparin Sodium (Porcine) (Heparin (1000 Units/ml)) 4,500 unit AFTER DIALYSIS CATHETER Last administered on 05/01/18at 11:46; Admin Dose 4,500 UNIT; Start 05/01/18 at 10:00 Lactobacillus Acidophilus/ Rhamnosus (Culturelle) 1 cap BID PO Last administered on 05/01/18at 11:46; Admin Dose 1 CAP; Start 05/01/18 at 11:00 Vancomycin HCl (Vanco Iv Per Pharmacy) VANCOMYCIN PER PHARMACY PER PROTOCOL XX ; Start 05/01/18 at 11:00 Cefepime HCl 50 ml @ 100 mls/hr Q24H IVPB Last administered on 05/01/18at 11:47; Admin Dose 100 MLS/HR; Start 05/01/18 at 11:00 Miscellaneous Information (*Rx Drug Level Order Reminder*) VANCO RANDOM W/ AM LABS... ONCE ONCE XX ; Start 05/02/18 at 05:00; Stop 05/02/18 at 05:01 Yordy Sutton DO May 01, 2018 12:50
--- NOTE | 2018-05-01 13:25 | CONS ---
Assessment/Plan Assessment/Plan Assessment/Plan (Daily) Left foot cellulitis Left foot dry gangrene Sepsis Possible pneumonia PAD ESRD on HD CAD hx of CABG COPD Plan: Discussed with patient the plan is for an open TMA and debridement of the left foot. Patient has dopplerable pulse to the left foot and a patent bypass graft. Appreciate vascular input. Recommend continue IV abx per ID recommendations. CT scan left lower extremity ordered. Wean off levophed as tolerated. betadine paint to gangrene areas and offload heels. Consultation Date/Type/Reason Admit Date/Time Apr 30, 2018 at 08:30 Initial Consult Date 04/30/18 Requesting Provider: SACHI ISLAS MD Date/Time of Note DATE: 05/01/18 TIME: 13:25 24 HR Interval Summary Free Text/Dictation No acute events overnight Exam/Review of Systems Exam Vitals Vital Signs Date Temp Pulse Resp B/P (MAP) Pulse Ox O2 O2 Flow FiO2 Time Delivery Rate 05/01/18 78 11:20 05/01/18 16 153/69 100 09:30 (97) 05/01/18 Nasal 2.0 09:00 Cannula 05/01/18 97.6 08:00 Intake and Output 04/30/18 04/30/18 05/01/18 1515:00 23:00 07:00 IntakeIntake Total 110 ml 378 ml 332.75 ml OutputOutput Total 200 ml 80 ml 60 ml BalanceBalance -90 ml 298 ml 272.75 ml Exam Dopplerable dorsal pedal pulse Skin temperature gradient warm to warm from proximal leg to distal feet Dry gangrene appreciated to the left hallux and 2nd digit with surrounding ischemic changes. Ascending erythema appreciated. No purulence. plantar left heel with dry gangrene 2 x 1cm indeterminate depth, surrounding erythema, no purulence appreciated. Absent protective sensations Muscle strength 4/5 in all compartments of the foot Left lower extremity bypass incision sites well approximated and no signs of wound dehiscence, no erythema, or fluctuance appreciated. Non invasive arterial studies IMPRESSION: No flow seen in the bilateral dorsalis pedis and posterior tibial arteries. Patent left common femoral artery to tibial artery bypass graft. Diffuse monophasic waveforms in the right lower extremity consistent with a sig nificant inflow stenosis. Probable severe stenosis right common femoral artery with elevated velocities. Foot X-ray IMPRESSION: Forefoot soft tissue swelling with evidence of soft tissue air at the great toe. Findings may be sequelae of infection or procedure. Tib-fib x-ray IMPRESSION: Postsurgical changes at the level of the knee. No evidence of acute osseous abnormality. Results Result Diagram: 05/01/18 0420 05/01/18 0420 Results 24hrs Laboratory Tests Test 04/30/18 14:53 04/30/18 17:34 04/30/18 18:43 04/30/18 21:23 Bedside Glucose 208 185 187 117 Test 04/30/18 22:30 05/01/18 04:20 05/01/18 08:16 05/01/18 09:27 Bedside Glucose 110 95 White Blood Count 25.5 H Red Blood Count 3.23 L Hemoglobin 10.5 L Hematocrit 32.2 L Mean Corpuscular Volume 99.7 Mean Corpuscular 32.5 Hemoglobin Mean Corpuscular 32.6 Hemoglobin Concent Red Cell Distribution 15.9 H Width Platelet Count 234 Mean Platelet Volume 11.1 H Immature Granulocytes % 1.300 H Neutrophils % Segmented Neutrophils 90 H % (Manual) Lymphocytes % Lymphocytes % (Manual) 3 L Reactive Lymphocytes 2 H % (Manual) Monocytes % Monocytes % (Manual) 5 Eosinophils % Basophils % Nucleated Red Blood 0.3 H Cells % Immature Granulocytes # 0.320 H Neutrophils # Lymphocytes (Manual) 0.7 L Lymphocytes # Reactive Lymphocytes # 0.5 H Monocytes # Monocytes # (Manual) 1.2 H Eosinophils # Basophils # Nucleated Red Blood Cells # Platelet Estimate NORMAL Polychromasia 1+ Anisocytosis 3+ Macrocytosis 3+ Sodium Level 129 L Potassium Level 4.7 Chloride Level 89 L Carbon Dioxide Level 25 Anion Gap 15 H Blood Urea Nitrogen 36 H Creatinine 5.64 H Est Glomerular Filtrat 10 L Rate mL/min Glucose Level 74 Calcium Level 8.3 L Hepatitis B Surface NEGATIVE Antigen Hepatitis B Surface NEGATIVE Antibody Test 05/01/18 11:55 Bedside Glucose 82 Medications Medication Current Medications Norepinephrine 250 ml @ 1.875 mls/ hr TITRATE IV Last administered on 05/01/18at 02:31; Admin Dose 22.5 MLS/HR; Start 04/30/18 at 07:30 Acetaminophen (Tylenol Liquid) 650 mg Q6H PRN PO PAIN LEVEL 1-3 OR FEVER; Start 04/30/18 at 12:30 Hydromorphone HCl (Dilaudid) 0.5 mg Q4H PRN IV PAIN LEVEL 7-10 Last administered on 04/30/18 20:10; Admin Dose 0.5 MG; Start 04/30/18 at 12:30 Zolpidem Tartrate (Ambien) 5 mg QHS PRN PO INSOMNIA; Start 04/30/18 at 12:30 Docusate Sodium (Colace) 100 mg Q12H PRN PO CONSTIPATION; Start 04/30/18 at 12:30 Aspirin (Halfprin) 81 mg DAILY PO Last administered on 05/01/18 08:47; Admin Dose 81 MG; Start 04/30/18 at 13:00 Atorvastatin Calcium (Lipitor) 80 mg QHS PO ; Start 04/30/18 at 21:00 Calcium Acetate (Phoslo) 667 mg WITH MEALS PO Last administered on 05/01/18 11:47; Admin Dose 667 MG; Start 04/30/18 at 17:35 Docusate Sodium (Colace) 100 mg BID PO Last administered on 05/01/18 08:48; Admin Dose 100 MG; Start 04/30/18 at 13:00 Ferrous Sulfate (Ferrous Sulfate (Ec)) 325 mg BID PO Last administered on 05/01/18 11:46; Admin Dose 325 MG; Start 05/01/18 at 09:00 Acetaminophen/ Hydrocodone Bitart ([place] (5/325)) 1 tab Q6H PRN PO PAIN LEVEL 6-10 Last administered on 05/01/18 11:47; Admin Dose 1 TAB; Start 04/30/18 at 13:00 Insulin Glargine (Lantus) 25 units QHS SC ; Start 04/30/18 at 21:00 Mirtazapine (Remeron) 15 mg HS PO ; Start 04/30/18 at 21:00 Tamsulosin HCl (Flomax) 0.4 mg HS PO ; Start 04/30/18 at 21:00 Miscellaneous Information 1 ea NOTE XX ; Start 04/30/18 at 13:00 Glucose (Glutose) 15 gm Q15M PRN PO DECREASED GLUCOSE; Start 04/30/18 at 13:00 Glucose (Glutose) 22.5 gm Q15M PRN PO DECREASED GLUCOSE; Start 04/30/18 at 13:00 Dextrose (D50w Syringe) 25 ml Q15M PRN IV DECREASED GLUCOSE Last administered on 05/01/18at 08:56; Admin Dose 25 ML; Start 04/30/18 at 13:00 Dextrose (D50w Syringe) 50 ml Q15M PRN IV DECREASED GLUCOSE; Start 04/30/18 at 13:00 Glucagon (Glucagen) 1 mg Q15M PRN IM DECREASED GLUCOSE; Start 04/30/18 at 13:00 Glucose (Glutose) 15 gm Q15M PRN BUCCAL DECREASED GLUCOSE; Start 04/30/18 at 13:00 Insulin Aspart (Novolog Insulin Pen) NOVOLOG *MODERATE* ALGORITHM WITH MEALS BEDTIME SC Last administered on 04/30/18at 18:45; Admin Dose 4 UNIT; Start 04/30/18 at 17:35 Albumin Human 100 ml @ 100 mls/hr WITH DIALYSIS PRN IV SBP <90 DURING DIALYSIS; Start 04/30/18 at 17:00 Sodium Chloride (NS) -To prime the dialy... DIRECTED FOR HD PRN IV HD; Start 04/30/18 at 17:00 Heparin Sodium (Porcine) (Heparin (1000 Units/ml)) 4,500 unit AFTER DIALYSIS CATHETER Last administered on 05/01/18at 11:46; Admin Dose 4,500 UNIT; Start 05/01/18 at 10:00 Lactobacillus Acidophilus/ Rhamnosus (Culturelle) 1 cap BID PO Last administered on 05/01/18at 11:46; Admin Dose 1 CAP; Start 05/01/18 at 11:00 Vancomycin HCl (Vanco Iv Per Pharmacy) VANCOMYCIN PER PHARMACY PER PROTOCOL XX ; Start 05/01/18 at 11:00 Cefepime HCl 50 ml @ 100 mls/hr Q24H IVPB Last administered on 05/01/18at 11:47; Admin Dose 100 MLS/HR; Start 05/01/18 at 11:00 Miscellaneous Information (*Rx Drug Level Order Reminder*) VANCO RANDOM W/ AM LABS... ONCE ONCE XX ; Start 05/02/18 at 05:00; Stop 05/02/18 at 05:01 SARKIS RUSSELL DPM May 01, 2018 13:25
--- NOTE | 2018-05-01 17:18 | RADRPT ---
Echocardiogram Report Patient Name: SILVIA ADKINSPatient ID: [id number] : 1960 (57y 5m)Study Date: 05/01/2018 12:46:16 PM Gender: MAccession #: [id number] Tech: Janie [facility] Location: [address] Ref.Physician: PERRY PARADA Height(Cm): BSA: Weight(Kg): Quality: AdequateAccount #: Procedures: Echocardiographic Report: Transthoracic echocardiogram with complete 2D, M-Mode, and doppler examination. Indications: Evaluate Left Ventricular function, and Congestive Heart Failure. Measurements: 2D/M Mode Doppler Measurement Value Normal Range Measurement Value Normal Range LVIDd 2D 4.8 [ 4.2 - 5.8 ] cm AV Peak Gilles 1.0 [ 100.0 - 170.0 ] cm/sec LVIDs 2D 4.3 [ 2.5 - 4.0 ] cm AV Peak PG 4.0 [ 2.0 - 9.0 ] mmHg LVPWd 2D 1.0 [ 0.6 - 1.0 ] cm LVOT Peak Gilles 0.5 [ 70.0 - 110.0 ] cm/sec IVSd 2D 1.1 [ 0.6 - 1.0 ] cm LVOT Peak PG 1.0 [ 2.0 - 6.0 ] mmHg AoR Diam 2D 2.5 [ 2.6 - 3.4 ] cm MV E Peak Gilles 1.1 [ 60.0 - 130.0 ] cm/sec EDV 2D 106.0 [ 62.0 - 150.0 ] ml MV A Peak Gilles 0.3 [ 100.0 - 120.0 ] cm/sec ESV 2D 81.7 [ 21.0 - 61.0 ] ml MV E/A 3.4 [ 0.8 - 1.5 ] ratio EF 2D 22.9 [ 52.0 - 72.0 ] percent MV Decel Time 141 [ 104 - 258 ] msec LA Dimen 2D 3.9 [ 3.0 - 4.0 ] cm Lat E` Gilles 0.0 [ 10.0 - 15.0 ] cm/sec Lateral E/E` 23.6 [ 1.0 - 2.0 ] ratio Med E` Gilles 0.0 cm/sec MV E/A 3.4 [ 0.8 - 1.5 ] ratio TR Peak Gilles 2.3 [ 100.0 - 280.0 ] cm/sec TR Peak PG 21.0 mmHg RVSP 29.0 [ 10.0 - 36.0 ] mmHg Findings: Left Ventricle: Normal left ventricular cavity size. Left ventricular wall thickness upper limits of normal. Severe left ventricular systolic dysfunction. Ejection fraction is visually estimated at 30 %. Tissue Doppler/Mitral Doppler indices are consistent with pseudonormalization with mildly elevated left atrial pressure (Stage II diastolic dysfunction). Right Ventricle: Normal right ventricular size. Normal right ventricular systolic function. Left Atrium: The left atrium is normal in size. Right Atrium: The right atrium is normal in size. Mitral Valve: Mild mitral leaflet calcification. Mild mitral annular calcification. Mild to moderate mitral valve regurgitation. Aortic Valve: No significant aortic stenosis or insufficiency. Aortic cusps appear mildly calcified. Tricuspid Valve: Estimated peak PA systolic pressure 29 mmHg. Tricuspid valve appears mildly thickened. There is mild tricuspid regurgitation. Pulmonic Valve: Normal pulmonic valve appearance. Pericardium: Normal pericardium with no significant pericardial effusion. Aorta: Normal aortic root. IVC: Normal size and no respiratory collapse consistent with elevated right atrial pressure. Conclusions: Normal left ventricular cavity size. Left ventricular wall thickness upper limits of normal. Severe left ventricular systolic dysfunction. Ejection fraction is visually estimated at 30 %. Tissue Doppler/Mitral Doppler indices are consistent with pseudonormalization with mildly elevated left atrial pressure (Stage II diastolic dysfunction). Normal right ventricular size. Normal right ventricular systolic function. The left atrium is normal in size. The right atrium is normal in size. Mild to moderate mitral valve regurgitation. No significant aortic stenosis or insufficiency. Estimated peak PA systolic pressure 29 mmHg. There is mild tricuspid regurgitation. Normal pericardium with no significant pericardial effusion. Electronically Signed By: Yordy Sutton 2018-05-01 17:17:16 PST
--- NOTE | 2018-05-02 14:05 | DS ---
DATE OF ADMISSION: 04/30/2018 DATE OF DISCHARGE: 05/01/2018 DISCHARGE DIAGNOSES: 1. Left foot cellulitis. 2. Chronic left foot dry gangrene. 3. Septic shock, resolved. 4. Severe diabetic vasculopathy. 5. Status post recent left lower extremity vascular bypass on 04/22/2018. 6. End-stage renal disease on hemodialysis. 7. Coronary artery disease, status post coronary artery bypass graft in the past. 8. Cardiomyopathy with ejection fraction of 30%. 9. Chronic obstructive pulmonary disease. HOSPITAL COURSE: A 57-year-old male with severe diabetic vasculopathy, chronic left foot dry gangren e, end-stage renal disease, presented to the Emergency Room with left foot cellulitis. Initially, malissa carlos was found to be in septic shock. He was placed on pressors and admitted to ICU. The patient w as seen by multiple consultants. Left transmetatarsal amputation was recommended. This was planned by podiatry. Patient, however, decided to sign out against medical advice. A 2D echo showed with ej ection fraction of 30%. He has a baseline ejection fraction is about 35%. Dictated By: SACHI GOODSON/NTS Conf#: [id number] DID#: [id number] CC: GREG MANNING MD;*EndCC*
--- NOTE | 2018-05-02 14:14 | RADRPT ---
Vent Rate: 78 bpm RR Interval: 0 msec SC Interval: 178 msec QRS Duration: 106 msec QT Interval: 422 msec QTC Interval: 481 msec P-R-T [place]: 52 - 108 - 0 degrees Normal sinus rhythm Rightward axis Low voltage QRS Incomplete left bundle branch block ST & T wave abnormality, consider lateral ischemia Prolonged QT Abnormal ECG Electronically Signed By: Harry Early
== END 2018-05-01 18:57 | disposition left against medical advice (07) | DRG 871 ==
LOC: E/R 06:02 → ICU 08:30
PROVIDERS: ADMIT Family Medicine; ATTEND Family Medicine
PROC: 5A1D70Z Performance of Urinary Filtration, Intermittent, Less than 6 Hours Per Day (ICD-10-PCS; 2018-04-30)
PROC: 5A1D70Z Performance of Urinary Filtration, Intermittent, Less than 6 Hours Per Day (ICD-10-PCS; principal; 2018-05-01)
DX: A41.9 Sepsis, unspecified organism (principal); R65.21 Severe sepsis with septic shock; N18.6 End stage renal disease; E11.52 Type 2 diabetes mellitus with diabetic peripheral angiopathy with gangrene; I96 Gangrene, not elsewhere classified; L03.116 Cellulitis of left lower limb; I12.0 Hypertensive chronic kidney disease with stage 5 chronic kidney disease or end stage renal disease; E11.22 Type 2 diabetes mellitus with diabetic chronic kidney disease; E11.65 Type 2 diabetes mellitus with hyperglycemia; I25.10 Atherosclerotic heart disease of native coronary artery without angina pectoris; J44.9 Chronic obstructive pulmonary disease, unspecified; E78.5 Hyperlipidemia, unspecified; Z79.4 Long term (current) use of insulin; Z99.2 Dependence on renal dialysis; Z91.15 Patient's noncompliance with renal dialysis; Z95.1 Presence of aortocoronary bypass graft
CPT/HCPCS: 36415; 36600; 71045; 71250; 73590; 73700; 80048; 80053; 81001; 82550; 82553; 82803; 82962; 83036; 83605; 84484; 85025; 85610; 85730; 86706; 86850; 86900; 86901; 87040; 87081; 87086; 87340; 90686; 90935; 93005; 93306; 93922; 96365; 96375; J0692; J1170; J1644; J1815; J1940; J3370; J7030